=== PATIENT | female | born 1960 | race Caucasian/White ===

== ENCOUNTER → 2020-12-24 08:23 | Outpatient (CLI) | payer SELFPAY ==
--- NOTE | 2020-12-24 09:16 | MRI_ITS ---
STUDY: MRI LUMBAR SPINE WITHOUT CONTRAST REASON FOR EXAM: Female, 60 years old. low back pain x 8 months, RADIATES INTO R LEG TECHNIQUE: Standardized fat and water weighted pulse sequences were obtained in the sagittal and axial planes without contrast. COMPARISON: None FINDINGS: Marrow signal is heterogeneous likely due to combination of osteopenia/osteoporosis and degenerative subchondral conversion related to disc and endplate spondylosis. However, there are linear central zones of increased T2/STIR and decreased T1 signal centrally in T10-T11 and T12 without lesion or compressive loss of height. Surrounded limited paraspinous soft tissues are normal as seen on sagittal pulse sequence. Axial pulse sequences do not cover this region. T12-L1: Mildly degenerated endplates. Mildly degenerated disc height, hydration and morphology. Mildly degenerated bilateral facet joints. Patent central canal and bilateral lateral recesses. Normal bilateral intervertebral neural foramina. Normal lumbar lordosis. There is no substantial scoliosis. Normal conus medullaris that terminates at T12. L1-2: Normal endplates. Normal disc height, mildly reduced in the hydration and morphology. Normal bilateral facet joints. Normal central canal and bilateral lateral recesses. Normal bilateral intervertebral neural foramina. L2-3: Normal endplates. Subchondral chronic zone of marrow degeneration. Mildly degenerated disc height, hydration and morphology. Degenerated bilateral facet joints. Normal central canal and bilateral lateral recesses. Patent right and moderately stenotic left foramina. L3-4: Normal endplates. Normal disc height, reduced hydration and morphology. Normal bilateral facet joints. Minor central canal stenosis without thecal sac compression with patent bilateral foramina.. Normal bilateral intervertebral neural foramina. L4-5: Degenerated endplates. Mildly degenerated disc height, hydration and morphology. Degenerated bilateral facet joints. Moderate to severe canal stenosis and thecal sac compression with bilateral lateral recess stenosis. Mild to moderate bilateral spondylotic foraminal stenosis. L5-S1: Early degenerated endplates. Degenerative disc height, hydration and morphology. Degenerative bilateral facet joints. Mild canal stenosis without functional thecal sac compression. Mild bilateral lateral recess stenosis. Moderate bilateral degenerative spondylotic foraminal stenosis. Normal visualized sacral ala. Normal visualized paraspinous soft tissue structures. MRI/Spine Lumbar (Routine) IMPRESSION: 1. Somewhat linear marrow edema in T10, T11 and T12, incompletely imaged, possibly subclinical osteoporotic insufficiency microfracture. Recommend dedicated thoracic spinal imaging to properly cover the area. 2. Moderate to severe L4-L5 spondylotic thecal sac stenosis. Neurosurgical evaluation is advised. 3. Multilevel various degree foraminal stenoses. Electronically Signed: Raheem Mei MD at 14:30 EST Tel , Service support ,
== END ==
PROVIDERS: PCP Nurse Practitioner Family; Referring Provider Nurse Practitioner Family; Visit Provider Nurse Practitioner Family
DX: R20.2 Paresthesia of skin (principal)
CPT/HCPCS: 72148

== ENCOUNTER → 2021-10-10 15:41 | Outpatient (CLI) | payer OTHER, SELFPAY ==
--- NOTE | 2021-10-10 15:45 | CT_ITS ---
STUDY: LOW DOSE CT LUNG CANCER SCREENING REASON FOR EXAM: Female, 61 years old. 45 pack-year history of smoking RADIATION DOSAGE (If Supplied By Facility): CTDIvol = ( 2.01 ) mGy, DLP = ( 65.19 ) mGycm TECHNIQUE: No contrast was administered. Low dose technique was utilized (average mAS-38 and kVp 120). 1.25 mm axial source images with a slice interval of 1.25-mm were reconstructed in lung windows. 2.5 mm axial source images with a slice interval of 2.5-mm were reconstructed in lung windows. 5.0 mm axial source images with a slice interval of 5.0-mm were reconstructed in soft tissue windows. Nodule measured using lung windows on PACS and/or independent workstation with automated measurement of minimum and maximum diameter. Nodule measurement reported as average diameter rounded to the nearest whole number. Growth is defined as an increase ins size of greater than 1.5 mm. COMPARISON: None. FINDINGS: Lung windows show mild underlying emphysema with bleb formation in the upper lobes. There is no organized infiltrate, or groundglass opacification. There are however 2 separate subcentimeter noncalcified nodules within the right upper lobe on axial images 74 and 85 over there are 2.5 mm noncalcified nodules and a 3.9 mm nodule in the left lung base on axial image 196. These nodules are essentially too small to characterize in the short-term, 6 month follow-up is recommended to show stability. Bony structures show degenerative change Soft tissue windows do not show suspicious abnormality CT/Low Dose CT Lung Screening IMPRESSION: Lung-RADS category 3 - Continue screening with LDCT in 6 months. IMPORTANT NOTES FOR USE: ACR Lung-RADS Version 1.1 Assessment Categories Release Date: 2018 Category: Coded 0-4 bases on nodule(s) with highest degree of suspicion. Negative screen is defined as categories 1 and 2; a positive screen is defined as categories 3 and 4. Category 3 and 4A nodules that are unchanged on interval CT should be coded as category 2, and individuals returned to screening in 12 months. Category 4X: Category 3 or 4 nodules with additional imaging findings that increase the suspicion of lung cancer, such as spiculation, GGN that doubles in size in 1 year, enlarged lymph notes, etc. Category Modifiers: S (significant finding unrelated to lung cancer) Electronically Signed: Heath Viera MD at 17:30 EST , Service support ,
== END ==
PROVIDERS: PCP Internal Medicine; Referring Provider Physician Assistant; Visit Provider Physician Assistant
DX: Z72.0 Tobacco use (principal)
CPT/HCPCS: 71271

== ENCOUNTER → 2022-05-15 | Outpatient (CLI) | payer OTHER, SELFPAY ==
--- NOTE | 2022-05-15 14:01 | CT_ITS ---
STUDY: LOW DOSE CT LUNG CANCER SCREENING REASON FOR EXAM: Female, 62 years old. Lung cancer screening -- and gt;30 pk yr hx;current smoker; asymptomatic RADIATION DOSAGE (If Supplied By Facility): CTDIvol = ( 1.59 ) mGy, DLP = ( 46.05 ) mGycm TECHNIQUE: No contrast was administered. Low dose technique was utilized (average mAS-38 and kVp 120). 1.25 mm axial source images with a slice interval of 1.25-mm were reconstructed in lung windows. 2.5 mm axial source images with a slice interval of 2.5-mm were reconstructed in lung windows. 5.0 mm axial source images with a slice interval of 5.0-mm were reconstructed in soft tissue windows. COMPARISON: Comparison is made with prior study dated 10/10/2021. NODULES: Stable 3 mm noncalcified nodule in the lateral aspect of the right upper lobe as seen on axial image #84. Emphysema: Hyperinflation. Mild degree of emphysematous changes with the linear scarring at the lung apices. Endobronchial lesion: None Aorta: Calcified plaque formation. CORONARY ARTERIES: Coronary artery calcification is seen. Heart: Unremarkable Pulmonary artery: Unremarkable Mediastinal nodes: Small mediastinal lymph nodes. Other chest and abdominal findings: CT/Low Dose CT Lung Screening IMPRESSION: Lung-RADS category 2 - Continue annual screening with LDCT in 12 months. IMPORTANT NOTES FOR USE: ACR Lung-RADS Version 1.1 Assessment Categories Release Date: 2018 Category: Coded 0-4 bases on nodule(s) with highest degree of suspicion. Negative screen is defined as categories 1 and 2; a positive screen is defined as categories 3 and 4. Category 3 and 4A nodules that are unchanged on interval CT should be coded as category 2, and individuals returned to screening in 12 months. Category 4X: Category 3 or 4 nodules with additional imaging findings that increase the suspicion of lung cancer, such as spiculation, GGN that doubles in size in 1 year, enlarged lymph notes, etc. Category Modifiers: S (significant finding unrelated to lung cancer) Electronically Signed: Thanh Persaud MD at 14:31 EDT ,
== END | disposition home or self-care (01) ==
LOC: CT 14:00
PROVIDERS: PCP Internal Medicine; Referring Provider Nurse Practitioner Family; Visit Provider Nurse Practitioner Family
DX: Z87.891 Personal history of nicotine dependence (principal); R91.8 Other nonspecific abnormal finding of lung field; Z12.2 Encounter for screening for malignant neoplasm of respiratory organs
CPT/HCPCS: 71271

== ENCOUNTER → 2022-06-26 | Outpatient (CLI) | payer OTHER, SELFPAY ==
--- NOTE | 2022-06-26 15:53 | BI_ITS ---
MAMMOGRAPHY - BILATERAL SCREENING REASON FOR EXAM: Female, 62 years old. Routine annual screening examination. PERTINENT HISTORY: Non-contributory. TECHNIQUE: Digital bilateral breast leigh ann (3D mammographic acquisition) in the CC and MLO projections. 2-D mediolateral oblique (MLO) and craniocaudad (CC) views of both breasts were obtained. CAD: Full Field Digital Mammography with Computer Added Detection was performed. COMPARISON: Comparison is made with prior outside examination dated 02/07/2021. FINDINGS: Breast Composition: The breasts are heterogeneously dense, which may obscure small masses. There are no dominant masses or suspicious calcifications. Stable benign-appearing bilateral axillary lymph nodes. No other significant abnormalities are identified. There has been no significant change since the prior study. BI/SCRN MAMM (CAD)W/LEIGH ANN BILAT IMPRESSION: Stable bilateral screening mammogram. Yearly follow-up mammogram recommended. (A) ASSESSMENT CATEGORY: BIRADS Category 2: Benign. A letter regarding these results will be sent to the patient by the facility within 30 days. Approximately 10% of breast cancers are not detected by mammography. A normal mammogram should not delay biopsy of a clinically suspicious abnormality. [id number] Electronically Signed: Thanh Persaud MD at 8:21 EDT ,
== END | disposition home or self-care (01) ==
LOC: OPBI 15:52
PROVIDERS: PCP Internal Medicine; Visit Provider Nurse Practitioner Family
DX: Z12.31 Encounter for screening mammogram for malignant neoplasm of breast (principal)
CPT/HCPCS: 77063; 77067

== ENCOUNTER → 2022-07-27 | Outpatient (CLI) | payer OTHER, SELFPAY ==
[2022-07-27 11:28] LABS: Absolute Lymphocyte Count 3.55 X10^3/uL (0.83-4.51); Absolute Neutrophil Count 6.9 X10^3/uL (2.0-7.7); Basophil# 0.11 X10^3/uL; Basophil% 0.9 % (0-1); Eosinophil# 0.74 X10^3/uL; Hematocrit 40.8 % (37-47); Hemoglobin 14.1 g/dL (12.0-15.0); Lymphocyte # 3.55 X10^3/ul (0.83-4.51); Lymphocyte % 28.6 % (19-41); Mean Corp Hgb Conc 34.6 g/dL (32-36); Mean Corpuscular Hgb 32.1 pg (27.0-32.0); Mean Corpuscular Volume 92.9 fL (81-99); Mean Platelet Vol. 11.7 fl (6.2-12.0); Monocyte# 1.02 X10^3/uL; Monocyte% 8.2 % (0-10); NRBC Flagged by Analyzer 0 % (0-5); Neutrophil # 6.93 X10^3/uL (2.7-7.7); Neutrophil % 55.8 % (47-70); Platelet Count 314 K/mm3 (150-450); RBC Distribution Width CV 12.1 % (11.6-14.6); RBC Distribution Width SD 41.5 fl (35.1-43.9); Red Blood Count 4.39 M/mm3 (4.2-5.4); White Blood Count 12.4 K/mm3 (4.4-11.0)
[2022-07-27 12:10] LABS: ALB/GLOB Ratio 0.8 RATIO (0.9-2.4); AST(SGOT) 28 U/L (15-37); Alanine Aminotransfer ALT/SGPT 34 U/L (13-56); Alkaline Phosphatase 100 U/L (45-117); Anion Gap 7 (5-15); BUN 20 mg/dL (7-18); BUN/Creat Ratio 24.5 RATIO (10-20); Calcium,Total 9.6 mg/dL (8.5-10.1); Chloride 105 mmol/L (98-107); Cholesterol 273 mg/dL (200); Creatinine, Serum 0.82 mg/dL (0.55-1.02); EST Glomerular Filtration Rate 76 mL/min (>60); Est Glom Filt Rate - Afr Amer 92 mL/min (>60); Globulin 4.8 g/dL (2.2-4.2); Glucose 93 mg/dL (74-106); High Density Lipoprotein 60 mg/dL; Potassium 4.8 mmol/L (3.5-5.1); Protein, Total 8.8 g/dL (6.4-8.2); Sodium Level 138 mmol/L (136-145); Triglycerides 238 mg/dL; Very Low Density Lipoprotein 48 mg/dL (5-40)
== END | disposition home or self-care (01) ==
LOC: LAB 09:57
PROVIDERS: PCP Internal Medicine; Referring Provider Physician Assistant; Visit Provider Physician Assistant
DX: Z00.00 Encounter for general adult medical examination without abnormal findings (principal); I10 Essential (primary) hypertension; Z13.220 Encounter for screening for lipoid disorders; Z13.6 Encounter for screening for cardiovascular disorders
CPT/HCPCS: 36415; 80053; 80061; 85025

== ENCOUNTER → 2022-08-23 | Outpatient (CLI) | payer OTHER, SELFPAY ==
--- NOTE | 2022-08-23 09:45 | RAD_ITS ---
STUDY: X-RAY - RIGHT ANKLE REASON FOR EXAM: Female, 62 years old. Swelling and lateral malleolar pain. TECHNIQUE: 3 view(s) of the ankle. COMPARISON: None. FINDINGS: Normal visualized distal tibia and fibula. Normal medial and lateral malleoli. Normal tibiotalar articulation and ankle mortise. Normal visualized talus and calcaneus. The visualized subtalar, talonavicular, calcaneocuboid and tarsal articulations are normal. The soft tissue structures are unremarkable. RAD/Ankle min 3 Views IMPRESSION: No abnormality of the right ankle. Electronically Signed: Iftikhar Morton, at 11:41 EDT ,
== END | disposition home or self-care (01) ==
LOC: RAD 09:44
PROVIDERS: PCP Internal Medicine; Referring Provider Physician Assistant; Visit Provider Physician Assistant
DX: M25.571 Pain in right ankle and joints of right foot (principal)
CPT/HCPCS: 73610

== ENCOUNTER → 2022-11-22 | Outpatient (CLI) | payer OTHER, SELFPAY | END | disposition home or self-care (01) | LOC: LABSPEC 16:13 | PROVIDERS: PCP Internal Medicine; Referring Provider Physician Assistant; Visit Provider Physician Assistant | DX: R05.9 Cough, unspecified (principal) | CPT/HCPCS: 87635; U0003; U0005 ==

== ENCOUNTER → 2023-09-19 | Outpatient (CLI) | payer OTHER, SELFPAY ==
[2023-09-19 16:38] LABS: Absolute Lymphocyte Count 3.69 X10^3/uL (0.83-4.51); Basophil# 0.13 X10^3/uL; Eosinophil# 0.84 X10^3/uL; Eosinophils% 6.5 % (0-5); Hematocrit 36.3 % (37-47); Hemoglobin 12.7 g/dL (12.0-15.0); Lymphocyte # 3.69 X10^3/ul (0.83-4.51); Lymphocyte % 28.5 % (19-41); Mean Corpuscular Hgb 31.8 pg (27.0-32.0); Mean Platelet Vol. 11.7 fl (6.2-12.0); Monocyte# 1.19 X10^3/uL; Monocyte% 9.2 % (0-10); NRBC Flagged by Analyzer 0 % (0-5); Neutrophil # 7.04 X10^3/uL (2.7-7.7); Neutrophil % 54.5 % (47-70); Platelet Count 298 K/mm3 (150-450); RBC Distribution Width CV 12.3 % (11.6-14.6); RBC Distribution Width SD 40.8 fl (35.1-43.9); Red Blood Count 3.99 M/mm3 (4.2-5.4); White Blood Count 12.9 K/mm3 (4.4-11.0)
[2023-09-19 17:08] LABS: ALB/GLOB Ratio 0.8 RATIO (0.9-2.4); AST(SGOT) 27 U/L (15-37); Alanine Aminotransfer ALT/SGPT 31 U/L (13-56); Albumin, Serum 3.7 g/dL (3.2-5.0); Alkaline Phosphatase 105 U/L (45-117); Anion Gap 5 (5-15); BUN 23 mg/dL (7-18); Calcium,Total 9.3 mg/dL (8.5-10.1); Chloride 107 mmol/L (98-107); Cholesterol 267 mg/dL (200); Creatinine, Serum 1.15 mg/dL (0.55-1.02); EST Glomerular Filtration Rate 51 mL/min (>60); Est Glom Filt Rate - Afr Amer 61 mL/min (>60); Globulin 4.4 g/dL (2.2-4.2); Glucose 98 mg/dL (74-106); High Density Lipoprotein 58 mg/dL; Potassium 3.9 mmol/L (3.5-5.1); Protein, Total 8.1 g/dL (6.4-8.2); Sodium Level 138 mmol/L (136-145); Triglycerides 297 mg/dL; Very Low Density Lipoprotein 59 mg/dL (5-40)
== END | disposition home or self-care (01) ==
LOC: BIMLAB 15:30
PROVIDERS: PCP Internal Medicine; Visit Provider Internal Medicine
DX: I10 Essential (primary) hypertension (principal)
CPT/HCPCS: 36415; 80053; 80061; 85025

== ENCOUNTER → 2024-03-10 | Outpatient (CLI) | payer OTHER, SELFPAY ==
--- NOTE | 2024-03-10 15:33 | BI_ITS ---
MAMMOGRAPHY - BILATERAL SCREENING REASON FOR EXAM: Female, 63 years old. Routine annual screening examination. PERTINENT HISTORY: Non-contributory. TECHNIQUE: Digital bilateral breast leigh ann (3D mammographic acquisition) in the CC and MLO projections. 2-D mediolateral oblique (MLO) and craniocaudad (CC) views of both breasts were obtained. CAD: Full Field Digital Mammography with Computer Added Detection was performed. COMPARISON: Comparison is made with prior examination June 26, 2022. FINDINGS: Breast Composition: The breasts are heterogeneously dense, which may obscure small masses. There are no dominant masses or suspicious calcifications. Stable small benign-appearing bilateral axillary lymph nodes. No other significant abnormalities are identified. There has been no significant change since the prior study. BI/SCRN MAMM (CAD)W/LEIGH ANN BILAT IMPRESSION: Stable bilateral screening mammogram. Yearly follow-up mammogram recommended. (A) ASSESSMENT CATEGORY: BIRADS Category 2: Benign. A letter regarding these results will be sent to the patient by the facility within 30 days. Approximately 10% of breast cancers are not detected by mammography. A normal mammogram should not delay biopsy of a clinically suspicious abnormality. [id number] Electronically Signed: Thanh Persaud MD at 8:24 EDT ,
--- NOTE | 2024-03-10 15:42 | BD_ITS ---
STUDY: DUAL ENERGY X-RAY ABSORPTIOMETRY / DXA REASON FOR EXAM: Female, 63 years old. Post Menopausal TECHNIQUE: Bone Mineral Density (BMD) measurements of lumbar spine and bilateral hips were obtained. COMPARISON: None. FINDINGS: Lumbar Spine (L1-L4): g/cm2 (1.168) / T-score (1.7) / Z-score (3.2) Findings are suggestive of normal bone density with a low fracture risk. Left Femur Total: g/cm2 (0.922) / T-score (-0.2) / Z-score (0.9) Left Femoral Neck: g/cm2 (0.826) / T-score (-0.2) / Z-score (1.2) Right Femur Total: g/cm2 (0.878) / T-score (-0.5) / Z-score (0.6) Right Femoral Neck: g/cm2 (0.818) / T-score (-0.3) / Z-score (1.1) . BD/Dexa Bone Density Study IMPRESSION: The patient is considered normal as outlined below according to World Faisal Organization (WHO) criteria with a low fracture risk. Reference Information: The T-score is the number of standard deviations above or below the standard which is normal for young adults at their peak bone mineral density. The World Health Organization (WHO) interprets the T-scores as follows: Above -1 Normal bone density Between -1 and -2.5 Osteopenia Equal to / or below -2.5 Osteoporosis As a practical clinical guideline, osteopenia may be graded as follows: Mild -1 through -1.5 Moderate -1.6 through -2.0 Severe -2.1 through -2.4 The Z-score is the number of standard deviations above or below age-matched controls. A Z-score of less than -1.5 would be considered abnormal. References: 1. NIH Osteoporosis and Related Bone Diseases www osteo.org 2. International Society for Clinical Densitometry www iscd.org 3. National Osteoporosis Foundation www nof.org Electronically Signed: Thanh Persaud MD at 13:38 EDT ,
== END | disposition home or self-care (01) ==
LOC: OPBD 15:33
PROVIDERS: PCP Internal Medicine; Referring Provider Internal Medicine; Visit Provider Internal Medicine
DX: Z12.31 Encounter for screening mammogram for malignant neoplasm of breast (principal); Z78.0 Asymptomatic menopausal state
CPT/HCPCS: 77063; 77067; 77080

== ENCOUNTER → 2024-06-13 | Outpatient (CLI) | payer OTHER, SELFPAY ==
--- NOTE | 2024-06-13 10:02 | RAD_ITS ---
EXAM: XR LEFT ANKLE COMPLETE, 3 OR MORE VIEWS CLINICAL INDICATION: pain TECHNIQUE: Frontal, lateral and oblique views of the left ankle. COMPARISON: No relevant prior studies available. FINDINGS: BONES/JOINTS: No acute fracture or subluxation. SOFT TISSUES: Mild lateral soft tissue swelling. No radiopaque foreign body. RAD/Ankle min 3 Views IMPRESSION: No acute bone or joint abnormality. Electronically Signed: Luis Song MD at 10:19 EDT ,
== END | disposition home or self-care (01) ==
LOC: RAD 09:59
PROVIDERS: PCP Internal Medicine; Referring Provider Physician Assistant; Visit Provider Physician Assistant
DX: S93.402A Sprain of unspecified ligament of left ankle, initial encounter (principal); X58.XXXA Exposure to other specified factors, initial encounter
CPT/HCPCS: 73610

== ENCOUNTER → 2025-04-15 | Outpatient (CLI) | payer OTHER, SELFPAY ==
--- NOTE | 2025-04-15 10:00 | BI_ITS ---
EXAM: SCRN MAMM (CAD)W/LEIGH ANN BILAT DATE: 04/15/2025 CLINICAL HISTORY: F, Age 65 y/o , BREAST CANCER SCREENING No family history. BREAST CANCER RISK ASSESSMENT: Not assessed. TECHNIQUE: Bilateral screening digital breast tomosynthesis with 2D and 3D images. Computer aided detection. COMPARISON: Prior exam(s) dated March 11, 2024.. FINDINGS: TISSUE DENSITY: The breast tissue is heterogenously dense, which may obscure small masses. Bilateral Breast Mammographic Findings: No significant masses, calcifications or other abnormalities are identified. No suspicious masses, areas of developing architectural distortion, or suspicious calcifications. There has been no significant interval change. BI/SCRN MAMM (CAD)W/LEIGH ANN BILAT IMPRESSION: OVERALL FINAL ASSESSMENT: BIRADS 1 NEGATIVE RECOMMENDATION: Routine annual follow-up in 1 Year A letter with findings and recommendations will be mailed to the patient. Reading Location: [id number]
== END | disposition home or self-care (01) ==
LOC: OPBI 09:34
PROVIDERS: PCP Internal Medicine; Referring Provider Internal Medicine; Visit Provider Internal Medicine
DX: Z12.31 Encounter for screening mammogram for malignant neoplasm of breast (principal)
CPT/HCPCS: 77063; 77067

== ENCOUNTER → 2025-06-24 | Outpatient (CLI) | payer OTHER, SELFPAY ==
--- NOTE | 2025-06-24 10:04 | RAD_ITS ---
EXAM: XR Right Shoulder Complete, 2 or More Views CLINICAL INDICATION: RIGHT SHOULDER PAIN TECHNIQUE: Two or more views of the right shoulder. COMPARISON: No relevant prior studies available. FINDINGS: BONES/JOINTS: Mild degenerative change of the acromioclavicular and glenohumeral joints. No acute fracture. No dislocation. SOFT TISSUES: Unremarkable. RAD/Shoulder min 2 Views IMPRESSION: Degenerative changes as above. Reading Location: [id number]
--- OUTSIDE RECORDS SUMMARY | 2025-06-24 12:12 | XMS RPT_ITS | CCD ---
Author Organization [facility] Care Team Providers Care Sample Maker Name Role Phone Margarito Montoya Unavailable Unavailable Margarito Montoya Unavailable Unavailable Longsdorf, Linn A Unavailable Unavailab le Ivanauskas, Saulius Unavailable Unavailable Ivanauskas, Saulius Unavailable Unavailable [facility] Unavailable Unavailable Required, No Pcp Unavailable Unavailable Ellen Rosado Unavailable Linn Majano Unavailable Unavailable Kris Fermin Unavailable Unavailable Dr. Bella Franco Primary Care Provider [phone] Dr. Bella Franco Referring Provider [phone] SONAM Abernathy Attending Provider Unavailab milena Beto UNHAIRING MACHINE OPERATOR, UNHAIRING MACHINE OPERATOR-C Romana Attending Provider Dr. Bella Franco Primary Care Provider [phone] Dr. Bella Franco Referring Provider [phone] SONAM Abernathy Attending Provider Unavailab le Beto UNHAIRING MACHINE OPERATOR, UNHAIRING MACHINE OPERATOR-C Romana Referring Provider Dr. Bella Franco Primary Care Provider [phone] Dr. Bella Franco Referring Provider [phone] SONAM Abernathy Attending Provider Unavailab milena Rosado, Ms. Hughes April Primary Care Unava ileron Stockton, MsOfelia Hernandez Attending Unavailab milena Rosado, MsOfelia Ellen April Primary Care Unava ileron Stockton, MsOfelia Hernandez Attending Unavailab milena [place]ton, MsOfelia Hanva Mary Attending Unavailab milena Rosado, MsOfelia Ellen April Primary Care Unava ilable BRUNICARDI, RUSSELL ARMAND Primary Care Unavail able BRUNICARDI, RUSSELL ARMAND Admitting Unavail able Bailee THEODORE, Russell Armand Primary Care Provide r Dr. Bella Franco Primary Care Provider [phone] Dr. Bella Franco Referring Provider [phone] Dr. Unruly Sandoval Attending Provider Dr. Red Rubio Attending Provider Dr. Bella Franco Attending Provider [phone] BRUNICARDI, RUSSELL ARMAND Primary Care Unavail able BRUNICARDI, RUSSELL ARMAND Attending Unavail able BRUNICARDI, RUSSELL ARMAND Primary Care Unavail able BRUNICARDI, RUSSELL ARMAND Attending Unavail able DENTON LOUIS Attending Unavailable BRUNICARDI, RUSSELL ARMAND Primary Care Unavail able BRUNICARDI, RUSSELL ARMAND Primary Care Unavail able BRUNICARDI, RUSSELL ARMAND Attending Unavail able Oleghe, Efewongbe Primary Care Unavailable Lj Arrieta Attending Unavailable Oleghe, Efewongbe Referring Unavailable Oleghe, Efewongbe Primary Care Unavailable Oleghe, Efewongbe Attending Unavailable Oleghe, Efewongbe Referring Unavailable Oleghe, Efewongbe Primary Care Unavailable Lj Arrieta Attending Unavailable Lj Arrieta Referring Unavailable Oleghe, Efewongbe Primary Care Unavailable Oleghe, Efewongbe Attending Unavailable Oleghe, Efewongbe Referring Unavailable Oleghe, Efewongbe Primary Care Unavailable Oleghe, Efewongbe Attending Unavailable Oleghe, Efewongbe Referring Unavailable Aleae Dr. Bella THEODORE Primary Care Provider Dr. Bella Franco MD Attending Provider [phone] Dr. Bella Franco MD Referring Provider [phone] Fidencio Jones Attending Provider [phone] Fidencio Jones Referring Provider [phone] Allergies Allergy Classification Reported Allergen(s) Allergy Type Date of Onset Reaction(s) Facility (5 sources) bee venom protein (honey bee) Allergy to substance 11-22-2022 Anaphylaxis [facility] (1 source) bee venom protein (honey bee) Drug allergy (disorder) 03-24-2025 [facility] Repository Medications Current Medications Medication Drug Class(es) Dates Sig (Normalized) Sig (Original) amLODIPine 10 mg oral tablet (20 sources) Dihydropyridine Calcium Channel James Start: 07-19-2022 End: 06-11-2025 take 1 tablet by mouth once daily Amlodipine 10 mg tablet Active 10 mg PO DAILY 90 0 June 11, 2025 8:53am Start: 05-16-2022 End: 07-19-2022 take 1 tablet by mouth once daily Amlodipine 2.5 mg tablet Discontinued 2.5 mg PO DAILY 90 1 May 16, 2022 12:00am July 19, 2022 4:30pm Start: 05-10-2022 End: 07-19-2022 take 7.5 mg by mouth once daily Amlodipine 5 mg tablet Discontinued 7.5 mg PO DAILY 120 0 May 10, 2022 4:25pm July 19, 2022 4:31pm Start: 05-10-2022 End: 07-19-2022 take 7.5 mg by mouth once daily Amlodipine Discontinue d 7.5 MG PO DAILY 120 May 10, 2022 4:25pm July 19, 2022 4:31pm Start: 12-05-2021 End: 05-10-2022 take 1 tablet by mouth once daily Amlodipine 5 mg tablet Discontinued 5 mg PO DAILY 90 0 February 06, 2022 4:13pm May 10, 2022 6:47pm Comment on above: Source=[employer], Medication=amlodipine 5 mg tablet, OriginatingSource=[employer], OriginatingProvider=Bella Franco, Duration=30, Refills=1, Date Last Modified/Filled=05-Dec-2021 calcium carbonate 1500 mg oral tablet (10 sources) Start: Calcium Carbonate (Calcium 600) 600 mg calcium (1,500 mg) tablet Active 1200 mg PO TWICE A DAY February 23, 2021 12:00am End: 04-19-2023 take 1 capsule by mouth twice daily at mealtime calcium carbonate 1250 MG capsule Take 1,250 mg by mouth 2 (two) times a day with meals . 0 04/19/2023 Discontinued (Therapy completed) calcium carbonate 1250 mg / cholecalciferol 200 unt oral tablet (2 sources) Vitamin D take 1 tablet by mouth twice daily at mealtime calcium-vitamin D 500 mg-5 mcg (200 unit) per tablet Take 1 (one) tablet by mouth 2 (two) times a day with meals . 0 Active cyclobenzaprine hydrochloride 10 mg oral tablet (2 sources) Muscle Relaxant Start: take 1 tablet by mouth once as needed for muscle spasms Cyclobenzaprine 10 mg tablet Active 10 mg PO BEDTIME as needed for muscle spasm 14 June 13, 2024 12:00am take only AFTER work hours as needed [id number] 0.3 ml EPINEPHrine 1 mg/ml auto-injector (9 sources) alpha-Adrenergic Agonist, beta-Adrenergic Agonist, Catecholamine Start: Epinephrine (Epipen 2-Kyler) 0.3 mg/0.3 mL auto-injector Active 0.3 mg IM every 5 to 15 minutes as needed for anaphylaxis 2 May 11, 2021 12:00am do not exceed 3 doses per episode gabapentin 800 mg oral tablet (20 sources) Anti-epileptic Agent Start: End: take 1 tablet by mouth every six hours as needed Gabapentin 800 mg tablet Active 0 .ROUTE .COMPLEX 360 0 May 19, 2025 11:52pm TAKE 1 TABLET BY MOUTH EVERY 6 HOURS NEEDED FOR NEUROPATHY Start: 02-23-2021 End: 10-31-2021 take 1 tablet by mouth twice daily Gabapentin 800 mg tablet Discontinued 800 mg PO TWICE A DAY 180 1 October 23, 2021 5:43pm October 31, 2021 9:36am Comment on above: Source=[place], Medication=gabapentin 800 mg tablet, OriginatingSource=[employer], OriginatingProvider=Bella Franco, Duration=30, Refills=1, Date Last Modified/Filled=06-Nov-2021 hydroCHLOROthiazide 12.5 mg oral tablet (20 sources) Thiazide Diuretic Star t: 03-07 End: 01-07 Hydrochlorothiazide Discontinued MG PO August 21, 2023 12:00am September 19, 2023 3:00pm Start: 05-17-2023 End: 04-30-2025 take 1 tablet by mouth once daily Hydrochlorothiazide 12.5 mg tablet Active 12.5 mg PO DAILY 90 April 30, 2025 1:10pm Leg Brace (Ankle Brace) misc (11 sources) Start: 11-22-2022 Leg Brace (Ank le Brace) misc Active 0 .Route 1 0 November 22, 2022 5:01pm Ankle pain Pain in unspecified ankle and joints of unspecified foot lace up ankle brace Start: 11-22-2022 Leg Brace (Ank le Brace) misc Active 0 .Route 1 November 22, 2022 5:01pm lace up ankle brace Start: 11-22-2022 Leg Brace (Ank le Brace) misc Active 0 .Route 1 November 22, 2022 4:01pm lace up ankle brace Start: 08-24-2022 End: 11-22-2022 Leg Brace (Ankle Brace) misc Discontinued 0 .Route 1 0 August 24, 2022 12:00am November 22, 2022 5:02pm Ankle pain Pain in unspecified ankle and joints of unspecified foot Wear daily Start: 08-24-2022 End: 11-22-2022 Leg Brace (Ankle Brace) misc Discontinued 0 .Route 1 August 24, 2022 12:00am November 22, 2022 5:02pm Wear daily Start: 08-24-2022 End: 11-22-2022 Leg Brace (Ankle Brace) misc Discontinued 0 .Route 1 August 23, 2022 11:00pm November 22, 2022 4:02pm Wear daily Start: 08-24-2022 Leg Brace (Ank le Brace) misc Active 0 .Route 1 August 24, 2022 12:00am Wear daily Magnesium (6 sources) Start: 08-21-2023 take 1 tablet by mark th once daily Magnesium 200 mg tablet Active 200 mg PO DAILY August 21, 2023 12:00am Start: 08-21-2023 take 200 mg by mouth once joana y Magnesium Active 200 MG PO DAILY August 21, 2023 12:00am Start: 08-21-2023 take 200 mg by mouth once joana y Magnesium Active 200 MG PO DAILY August 20, 2023 11:00pm take 1 tablet by mark th once daily magnesium 250 mg Tab Take 1 (one) tablet (250 mg total) by mouth daily . 0 Active metoprolol tartrate 100 mg oral tablet (20 sources) beta-Adrenergic James Start: 02-06-2022 End: 05-25-2025 take 1 tablet by mouth twice daily Metoprolol Tartrate 100 mg tablet Active 0 .ROUTE .COMPLEX 180 May 25, 2025 12:33pm TAKE 100 MG BY MOUTH TWICE DAILY Start: 03-02-2021 End: 05-11-2021 Metoprolol Tartrate 50 mg ta blet Discontinued 25 mg PO TWICE A DAY March 02, 2021 4:23pm May 11, 2021 4:15pm Start: 03-02-2021 End: 05-11-2021 take 25 mg by mouth twice daily Metoprolol Tartrate Di scontinued 25 MG PO TWICE A DAY March 02, 2021 4:23pm May 11, 2021 4:15pm Start: 02-23-2021 End: 04-19-2023 take 1 tablet by mouth twice daily Metoprolol Tartrate 50 mg tablet Discontinued 50 mg PO TWICE A DAY 180 December 21, 2021 12:40pm February 06, 2022 4:09pm Comment on above: Source=[place], Medication=metoprolol tartrate 50 mg tablet, OriginatingSource=[employer] #[employer], OriginatingProvider=Bella Franco, Duration=30, Refills=1, Date Last Modified/Filled=13-Dec-2021 Multivitamin preparation (9 sources) Start: 2021 take 1 tablet by mouth once daily Multivitamin Active 1 TABLET PO DAILY November 23, 2021 12:00am Start: 11-23-2021 take 1 tablet by mark th once daily Multivitamin Active 1 TABLET PO DAILY November 23, 2021 1:00am Vitamin B Comple x 100 Quantity: 0 Refills: 0 Ordered: 31-May-2020 Madina Puente Status: Completed Generic Substitution Allowed Multivitamin tablet (2 sources) Start: 11-23-2021 Multivitamin t ablet Active 1 {tbl} PO DAILY November 23, 2021 1:00am predniSONE 10 mg oral tablet (1 source) Start: 05-17-2023 End: 05-24-2023 take 1 tablet by mouth three times daily predniSONE (DELTASONE) 10 MG tablet Indications: Chest wall pain Take 1 (one) tablet (10 mg total) by mouth 3 (three) times a day for 7 days . 21 tablet 0 05/17/2023 05/24/2023 Active traMADol hydrochloride 50 mg oral tablet (1 source) Opioid Agonist Start: 04-04-2022 End: 04-06-2022 take 1 tablet by mouth four times daily Ultram 50 mg oral tablet ; 1 tab(s) orally 4 times a day Quantity: 12 Refills: 0 Ordered: 04-Apr-2022 Kris Fermin Start: 04-Apr-2022 End: 06-Apr-2022 Generic Substitution Allowed Comments: Caution federal law prohibits the transfer of this drug to any person other than the person for whom it was prescribed.May cause drowsiness. Alcohol may intensify this effect. Use care when operating dangerous machinery.Obtain medical advice before taking any non-prescription drugs as some may affect the action of this medication. Comment on above: Caution [place] law prohibits the transfer of this drug to any person other than the person for whom it was prescribed.May cause drowsiness. Alcohol may intensify this effect. Use care when operating dangerous machinery.Obtain medical advice before taking any non-prescription drugs as some may affect the action of this medication. Completed/Discontinued Medications Medication Drug Class(es) Dates Sig (Normalized) Sig (Original) acetaminophen 500 mg oral tablet (1 source) End: 04-19-2023 acetaminophen (TYLENOL) 500 MG tablet Take 1,000 mg by mouth as needed for pain . 0 04/19/2023 Discontinued (Therapy completed) atorvastatin 10 mg oral tablet (7 sources) HMG-CoA Reductase Inhibitor Start: 07-31-2022 End: 08-21-2023 take 1 tablet by mouth at bedtime Atorvastatin 10 mg tablet Discontinued 10 mg PO AT BEDTIME 60 1 July 31, 2022 12:00am August 21, 2023 1:09pm benzonatate 100 mg oral capsule (11 sources) Non-narcotic Antitussive Start: 03-31-2025 End: 06-24-2025 Benzonatate 100 mg capsule Discontinued 100 mg PO 2 to 3 times per day as needed for cough 90 2 March 31, 2025 12:00am June 24, 2025 10:02am Start: 09-01-2021 End: 09-25-2021 take 1 capsule by mouth twice daily as needed for cough Benzonatate (Tessalon Perles) 100 mg capsule Discontinued 100 mg PO TWICE A DAY as needed for cough 30 1 September 01, 2021 12:00am September 25, 2021 4:55pm 12 hr buPROPion hydrochloride 150 mg extended release oral tablet (9 sources) Aminoketone Start: 05-10-2022 End: 07-19-2022 Bupropion Hcl 150 mg tablet sustained-release 12 hr Discontinued 150 mg PO TWICE A DAY 180 0 May 10, 2022 12:00am July 19, 2022 4:10pm Take 1 tablet once a day for 4 days then increase to twice a day. Separate doses by at least 8 hours. Stop smoking after 5-7 days of treatment. ibuprofen 200 mg oral capsule (9 sources) Nonsteroidal Anti-inflammatory Drug Start: 03-17-2021 End: 03-26-2024 take 1 capsule by mouth every six hours as needed Ibuprofen 200 mg capsule Discontinued 200 mg PO EVERY 6 HOURS as needed March 17, 2021 12:00am March 26, 2024 3:55pm Lactobacillus Combination No.9 (Adult 50 Plus Probiotic) 4 billion cell capsule (9 sources) Start: 02-06-2022 End: 08-21-2023 take 4 capsules by mouth once daily Lactobacillus Combination No.9 (Adult 50 Plus Probiotic) 4 billion cell capsule Discontinued 4000 NMA PO DAILY February 06, 2022 12:00am August 21, 2023 1:09pm administer with a meal Start: 02-06-2022 End: 08-21-2023 take 4 capsules by mouth once daily Lactobacillus Combination No.9 (Adult 50 Plus Probiotic) 4 billion cell capsule Discontinued 4000 MMU CELLS PO DAILY February 06, 2022 12:00am August 21, 2023 1:09pm administer with a meal Start: 02-06-2022 End: 08-21-2023 take 4 capsules by mouth once daily Lactobacillus Combination No.9 (Adult 50 Plus Probiotic) 4 billion cell capsule Discontinued 4000 MMU CELLS PO DAILY February 05, 2022 11:00pm August 21, 2023 12:09pm administer with a meal Start: 02-06-2022 take 4 capsules by m outh once daily Lactobacillus Combination No.9 (Adult 50 Plus Probiotic) 4 billion cell capsule Active 4000 MMU CELLS PO DAILY February 05, 2022 11:00pm administer with a meal Start: 02-06-2022 take 4 capsules by m outh once daily Lactobacillus Combination No.9 (Adult 50 Plus Probiotic) 4 billion cell capsule Active 4000 MMU CELLS PO DAILY February 06, 2022 12:00am administer with a meal lisinopril 10 mg oral tablet (2 sources) Angiotensin Converting Enzyme Inhibitor take 1 tablet by mouth once daily lisinopril 10 mg oral tablet ; 1 tab(s) orally once a day Quantity: 0 Refills: 0 Ordered: 31-May-2020 Madina Puente Status: Completed Generic Substitution Allowed loperamide hydrochloride 2 mg oral capsule (9 sources) Opioid Agonist Start: End: Loperamide 2 mg capsule Discontinued 2 mg PO .COMPLEX as needed for loose stool 07 12September 01, 2021 12:00am November 23, 2021 4:52pm Take 4 mg by mouth once and then 2 mg by mouth after each loose stool Start: 09-01-2021 End: 11-23-2021 Loperamide Discontinued 2 MG PO .COMPLEX September 01, 2021 12:00am November 23, 2021 4:52pm Take 4 mg by mouth once and then 2 mg by mouth after each loose stool methylPREDNISolone 4 mg oral tablet (2 sources) Corticosteroid Start: 06-13-2024 End: 09-24-2024 take 1 tablet by mouth once Methylprednisolone (Medrol (Kyler)) 4 mg tablets,dose pack Discontinued 0 PO per package directions 21 June 13, 2024 12:00am September 24, 2024 4:41pm PO PER PKG DIR move [employer] (9 sources) Start: 02-23-2021 End: 08-21-2023 move [employer] Discontinued PO 0 February 23, 2021 12:00am August 21, 2023 1:09pm Start: 02-23-2021 End: 08-21-2023 move [employer] Disco ntinued PO February 23, 2021 12:00am August 21, 2023 1:09pm Start: 02-23-2021 End: 08-21-2023 move [facility] Disco ntinued PO February 22, 2021 11:00pm August 21, 2023 12:09pm Start: 02-23-2021 move free [facility] Active PO February 22, 2021 11:00pm Start: 02-23-2021 move free join t health Active PO February 23, 2021 12:00am 24 hr nicotine 0.875 mg/hr transdermal system (9 sources) Cholinergic Nicotinic Agonist Start: 09-25-2021 End: 05-10-2022 apply 1 dose transdermal route every twenty-four hours Nicotine 21 mg/24 hr patch 24 hour Discontinued 1 NMA TD DAILY 12 02September 25, 2021 1:00am May 10, 2022 4:00pm Start: 09-25-2021 End: 05-10-2022 apply 1 dose transdermal route once daily Nicotine Discontinued 1 PATCH TD DAILY September 25, 2021 1:00am May 10, 2022 4:00pm Problems Active Problems Problem Classification Problem Date Documented Date Episodic/Chronic Anxiety disorders (4 sources) Anxiety disorder, unspecified; Translations: [Anxiety state, unspecified] Chronic Disorders of lipid metabolism (7 sources) Pure hypercholesterolemia, unspecified; Translations: [Pure hypercholesterolemia] Onset: 04-19-2023 Chronic Essential hypertension (20 sources) Hypertensive disorder; Translations: [Essential (primary) hypertension] Onset: 04-19-2023 Chronic Heart valve disorders (2 sources) Heart murmur; Translations: [Cardiac murmur, unspecified] 03-26-2024 Episodic Other acquired deformities (5 sources) Other secondary scoliosis, lumbosacral region; Translations: [Scoliosis of lumbosacral region due to degenerative disease of spine in adult] 08-21-2023 Chronic Other lower respiratory disease (9 sources) Multiple nodules of lung; Translations: [Other nonspecific abnormal finding of lung field] 05-15-2022 Episodic Other lower respiratory disease (4 sources) Cough; Translations: [Cough] 03-24-2025 Episodic Other non-traumatic joint disorders (2 sources) Effusion, unspecified ankle; Translations: [Effusion of joint, ankle and foot] Episodic Other non-traumatic joint disorders (3 sources) Pain in right ankle and joints of right foot; Translations: [Pain in joint, ankle and foot] Episodic Other non-traumatic joint disorders (4 sources) Hip pain; Translations: [Pain in left hip] 08-21-2023 Episodic Other non-traumatic joint disorders (1 source) Pain in left hip; Translations: [Pain in joint, pelvic region and thigh] 08-21-2023 Episodic Other screening for suspected conditions (not mental disorders or infectious disease) (16 sources) Patient encounter status; Translations: [Encounter for screening for malignant neoplasm of respiratory organs] Onset: 04-17-2023 Episodic Other upper respiratory infections (5 sources) Acute pharyngitis, unspecified; Translations: [Acute pharyngitis] 11-22-2022 Episodic Residual codes; unclassified (11 sources) Tobacco user; Translations: [Tobacco use] 11-26-2022 Episodic Residual codes; unclassified (13 sources) Tobacco use; Translations: [Tobacco use disorder] Episodic Spondylosis; intervertebral disc disorders; other back problems (7 sources) Degeneration of lumbar intervertebral disc; Translations: [Other intervertebral disc degeneration, lumbar region] Onset: 05-31-2021 05-31-2021 Chronic Spondylosis; intervertebral disc disorders; other back problems (20 sources) Sciatica; Translations: [Sciatica, unspecified side] Onset: 05-31-2021 03-02-2021 Episodic Sprains and strains (4 sources) Sprain of unspecified ligament of left ankle, initial encounter; Translations: [Sprain of left ankle] Onset: 07-06-2024 06-13-2024 Episodic Superficial injury; contusion (3 sources) Contusion of elbow; Translations: [Contusion of elbow] 12-18-2021 Episodic Unclassified (2 sources) HIT ELBOW ON HANDRAIL WHILE AT WORK. WORKS AT [employer] 12-18-2021 Comment on above: HIT ELBOW ON HANDRAI L WHILE AT WORK. WORKS AT [employer] Unclassified (1 source) Contusion of right elbow 12-18-2021 Unclassified (2 sources) LEFT RIB PAIN 04-04-2022 Comment on above: LEFT RIB PAIN Unclassified (1 source) Contusion of rib on left side 04-04-2022 Unclassified (1 source) Abrasion of upper extremity 04-04-2022 Unclassified (2 sources) 06/15/23 OV NOTE URGENT CARE Onset: 06-18-2023 Past or Other Problems Problem Classification Problem Date Documented Da te Episodic/Chronic E Codes: Cut/pierceb (3 sources) Contact with hypodermic needle, initial encounter; Translations: [Contact with hypodermic needle, initial encounter] Onset: 07-30-2022 Episodic Nonspecific chest pain (3 sources) Chest wall pain; Translations: [Other chest pain] Onset: 05-17-2023 05-17-2023 Episodic Other connective tissue disease (2 sources) Cramp in lower limb; Translations: [Cramp and spasm] Onset: 05-31-2021 05-31-2021 Episodic Results Test Name Value Interpretation Reference Range Facility Breast imaging reportOrdered By: Thanh Persaud on 04-15-2025 Study report [facility] Imaging Services [address] [place] [address] SCRN MAMM (CAD)W/LEIGH ANN BILAT MR#: [id number] Acct: [id number] Name: ADALI ALVAREZ Rep #: [id number] : 1960 F 65 From: Abimael Persaud MD PCP: Dr. Bella Franco MD Status: R EG CLI Study:SCRN MAMM (CAD)W/LEIGH ANN BILAT Date of Exa m: 04/15/25 Exam# [id number] Ordering Dr: Dayan Franco MD EXAM: SCRN MAMM (CAD)W/LEIGH ANN BILAT DATE: 04/15/2025 CLINICAL HISTORY: F, Age 65 y/o , BREAST CANCER SCREENING No family history. BREAST CANCER RISK ASSESSMENT: Not assessed. TECHNIQUE: Bilateral screening digital breast tomosynthesis with 2D and 3D images. Computeraided detection. COMPARISON: Prior exam(s) dated March 11, 2024.. FINDINGS: TISSUE DENSITY: The breast tissue is heterogenously dense, which may obscure small masses. Bilateral Breast Mammographic Findings: No significant masses, calcifications or other abnormalities are identified. No suspicious masses, areas of developing architectural distortion, or suspicious calcifications. There has been no significant interval change. BI/SCRN MAMM (CAD)W/LEIGH ANN BILAT IMPRESSION: OVERALL FINAL ASSESSMENT: BIRADS 1 NEGATIVE RECOMMENDATION: Routine annual follow-up in 1 Year A letter with findings and recommendations will be mailed to the patient. Reading Location: [facility] CC: Dr. Bella Franco MD ~ Bakery Helper: Signed [facility] SCRN MAMM (CAD)W/LEIGH ANN BILATo n 04-15-2025 SCRN MAMM (CAD)W/LEIGH ANN BILAT [facility] Imaging Services [address] [place] [place] [address] SCRN MAMM (CAD)W/LEIGH ANN BILAT MR#: [id number] Acct: [id number] Name: ADALI ALVAREZ Rep #: [id number] : 1960 F 65 From: Thanh vela MD PCP: Dr. Bella Franco MD Status: [facility] Study: SCRN MAMM (CAD)W/LEIGH ANN BILAT Date of Exam: 03/19 08/12 Exam# [id number] Ordering Dr: Bella Franco MD EXAM: SCRN MAMM (CAD)W/LEIGH ANN BILAT DATE: 04/15/2025 CLINICAL HISTORY: F, Age 65 y/o , BREAST CANCER SCREENING No family history. BREAST CANCER RISK ASSESSMENT: Not assessed. TECHNIQUE: Bilateral screening digital breast tomosynthesis with 2D and 3D images. Computer aided detection. COMPARISON: Prior exam(s) dated March 11, 2024.. FINDINGS: TISSUE DENSITY: The breast tissue is heterogenously dense, which may obscure small masses. Bilateral Breast Mammographic Findings: No significant masses, calcifications or other abnormalities are identified. No suspicious masses, areas of developing architectural distortion, or suspicious calcifications. There has been no significant interval change. BI/SCRN MAMM (CAD)W/LEIGH ANN BILAT IMPRESSION: OVERALL FINAL ASSESSMENT: BIRADS 1 NEGATIVE RECOMMENDATION: Routine annual follow-up in 1 Year A letter with findings and recommendations will be mailed to the patient. Reading Location: [facility] CC: Dr. Bella Franco MD Bakery Helper: Signed Normal [facility] Internal Medicine Office Vis itoryan 03-24-2025 Internal Medicine Office Visit [facility] [address] [place] [address] [place] [address] OFFICE VISIT Date of Service: 03/24/25 MR#: [id number] Acct: [id number] Name: ADALI ALVAREZ Rep #: [id number] : 1960 Provider: Dr. Bella castillo MD Age/Sex: 64/F Location: [facility] Status: Signed Intake Vital Signs 09/24/24 15:41 03/24/25 16:02 Height 5 ft 2 in 5 ft 2 in Weight: 132 lb 8 oz BMI 24.2 BP 118/76 Blood Pressure Location Lt brachial Position Sitting Respiration 16 Pulse 82 Pulse Source Monitor Temp 98 F Temp Source Temporal Pulse Oximetry (%) 95 Oxygen Delivery Method room air Intake Visit Reasons: 6 M FU Chief Complaint: Follow-up chronic conditions. Sore throat, cough Verifying Specialist Required: No Accompanied by: Self Is patient in pain?: No Allergies bee venom protein (honey bee) Allergy (Mild, Verified 03/24/25 16:00) Anaphylaxis Medications ???Medication ???Instructions ???Recorded ???Confirmed ???Type calcium carbonate (Calcium 600) 1,200 mg PO BID 02/23/21 03/24/25 History epinephrine 0.3 mg/0.3 mL 0.3 mg (0.3 mL) IM Q5-15M PRN 04/1903/24/25 Rx injection, auto-injector (EpiPen anaphylaxis #2 ea 2-Kyler) multivitamin 1 tab PO DAILY 11/23/21 03/24/25 H istory leg brace (Ankle Brace) #1 ea 11/22/22 03/24/25 Rx magnesium 200 mg tablet 200 mg PO DAILY 08/21/23 03/24/25 History cyclobenzaprine 10 mg tablet 10 mg PO HS PRN muscle spasm #14 0 06/13/24 03/24/25 Rx tabs metoprolol tartrate 100 mg tablet See Rx Instructions .Route 03/24/25 Rx .COMPLEX #180 tabs amlodipine 10 mg tablet 10 mg PO DAILY #90 tabs 10/28/24 0 03/24/25 Rx gabapentin 800 mg tablet See Rx Instructions .Route 5 03/24/25 Rx .COMPLEX #360 tabs hydrochlorothiazid e 12.5 mg tablet 12.5 mg PO DAILY #60 tabs 03/24/25 Rx Have you fallen in the past year?: No Nurse's Note: sore throat cough phlegm PFSH Medical History (Updated 03/24/25 @ 18:[address] Bella Franco MD) Cough Pharyngitis Lumbar radiculopathy Left ankle sprain Heart murmur Health care maintenance Encounter for screening for malignant neoplasm of lung in current smoker with 30 pack year history or greater Multiple lung nodules on CT Tobacco abuse Sciatica Back problem Hypertension Surgical History History of elbow surgery History of partial hysterectomy Family History Grandmother Breast cancer Cancer Brother Cancer Mother Diabetes Kidney disease Social History Smoking Status: Current every day smoker tobacco type: cigarettes Tobacco: How many years used: 40 second hand exposure: Yes quit status: considering quitting alcohol intake: current alcohol intake frequency: a few times a month substance use type: does not use what type of physical activity do you participate in: none HPI HPI Chief Complaint: Follow-up chronic conditions. Sore throat, cough Details: ADALI ALVAREZ, is a 64 F who presents to the office today for follow-up of her chronic conditions. Also has some concerns. She had sore throat yesterday and woke up this morning with cough. Feels unwell. 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 She does not know if this is due to COVID, flu or RSV. No recorded fever. History of hypertension, blood pressure today at 118/76 mmHg. Currently on amlodipine and hydrochlorothiazid e which she reports compliance with. No chest pain, palpitation or worsening shortness of breath. Other chronic medical conditions are largely stable. ROS Const Constitutional: No body ache, excessive sweating, fatigue, fever(s), frequent falls, headache(s), snoring, weakness, weight change, sleep problems or change in appetite Eyes Eyes: No blurry vision, change in vision, bulging eyes, floaters, visual disturbances, eye pain or Light sensitivity ENT ENT: Positive for sore throat; No abnormal hearing, ear or mastoid pain, tinnitus, balance problems, nosebleed/epistaxi s, nasal congestion, headache(s) or neck pain Resp Respiratory: Positive for cough; No shortness of breath, snoring or wheezing Cardio Cardiology: No chest pain at rest, chest pain with exertion, excessive sweating, shortness of breath, dyspnea on exertion, lightheadedness, orthopnea or palpitations Gastro GI: No abdominal pain, change in bowel habits, constipation, cramping, diarrhea, nausea/dyspepsia or vomiting Genitourinary-Fema le: No burning urination, painful urination, urinary incontinence, urinary frequency, blood in urine, suprapubic fullness, side pain, abnormal periods or pelvic pain Musc Musculoskeletal (more content not included)... Normal [facility] Laboratory - Microbiology an d Antimicrobial susceptibilityOrdered By: Bella Franco on 03-24-2025 SARS-CoV-2 (COVID-19) RNA ITZEL+probe Ql (Unsp spec) Not detected [facility] No Panel InformationOrdered By: Bella Franco on 03-24-2025 Influenza Types A,B Rapid (Clinic) Negative [facility] Rapid group A Streptococcus antigen assay at point of careOrdered By: Bella Franco on 03-24-2025 S. pyogenes Ag IA.rapid Ql (Throat) Negative [facility] Internal Medicine Office Vis iton 09-24-2024 Internal Medicine Office Visit [facility] [address] [place] [address] [place] [address] OFFICE VISIT Date of Service: 09/24/24 MR#: [id number] Acct: [id number] Name: ADALI ALVAREZ Rep #: [id number] : 1960 Provider: Dr. Bella castillo MD Age/Sex: 64/F Location: [facility] Status: Signed Intake Vital Signs 03/26/24 15:55 06/13/24 09:32 11/07/24 15:41 Height 5 ft 2 in 5 ft 2 in 5 ft 2 in Weight: 131 lb BMI 23.9 BP 132/80 H Blood Pressure Location Lt brachial Position Sitting Respiration 16 Pulse 74 Pulse Source Monitor Temp 97.4 F L Temp Source Temporal Pulse Oximetry (%) 97 Oxygen Delivery Method room air Intake Visit Reasons: 6 M FU Chief Complaint: Follow-up chronic conditions Verifying Specialist Required: No Is patient in pain?: No Allergies bee venom protein (honey bee) Allergy (Mild, Verified 09/24/24 15:36) Anaphylaxis Medications ???Medication ???Instructions ???Recorded ???Confirmed ???Type calcium carbonate (Calcium 600) 1,200 mg PO BID 02/23/21 09/24/24 History epinephrine 0.3 mg/0.3 mL 0.3 mg (0.3 mL) IM Q5-15M PRN 05/11/21 09/24/24 Rx injection, auto-injector (EpiPen anaphylaxis #2 ea 2-Kyler) multivitamin 1 tab PO DAILY 11/23/21 09/24/24 History leg brace (Ankle Brace) #1 ea 11/22/22 09/24/24 Rx magnesium 200 mg tablet 200 mg PO DAILY 08/21/23 09/24/24 History gabapentin 800 mg tablet See Rx Instructions .Route 11/13/23 09/24/24 Rx .COMPLEX #360 tabs cyclobenzaprine 10 mg tablet 10 mg PO HS PRN muscle spasm #14 06/13/24 09/24/24 Rx tabs hydrochlorothiazid e 12.5 mg tablet 12.5 mg PO DAILY #90 tabs 08/06/24 09/24/24 Rx amlodipine 10 mg tablet 10 mg PO DAILY #90 tabs 09/14/24 09/24/24 Rx metoprolol tartrate 100 mg tablet See Rx Instructions .Route 09/14/24 09/24/24 Rx .COMPLEX #180 tabs Nurse's Note: Declines flu vaccine. [facility] Medical History (Updated 09/24/24 @ 16:[address] Bella Franco MD) Lumbar radiculopathy Left ankle sprain Heart murmur Health care maintenance Encounter for screening for malignant neoplasm of lung in current smoker with 30 pack year history or greater Multiple lung nodules on CT Tobacco abuse Sciatica Back problem Hypertension Surgical History History of elbow surgery History of partial hysterectomy Family History Grandmother Breast cancer Cancer Brother Cancer Mother Diabetes Kidney disease Social History Smoking Status: Current every day smoker tobacco type: cigarettes Tobacco: How many years used: 40 second hand exposure: Yes quit status: considering quitting alcohol intake: current alcohol intake frequency: a few times a month substance use type: does not use what type of physical activity do you participate in: none HPI HPI Chief Complaint: Follow-up chronic conditions Details: ADALI ALVAREZ, is a 64 F who presents to the office today for follow-up of her chronic conditions. No acute concerns at this time. History of hypertension, blood pressure today at 132/80 mmHg. Currently on amlodipine and hydrochlorothiazid e which she reports compliance with. Also on metoprolol. No chest pain, palpitation or shortness of breath. Other chronic conditions are stable. Continues to smoke, not open to quitting. Yet to get labs done. ROS Const Constitutional: No body ache, chills, excessive sweating, fatigue, fever(s), frequent falls, headache(s), snoring, weakness, sleep problems or change in appetite Eyes Eyes: No blurry vision, change in vision, bulging eyes, floaters, visual disturbances, eye pain or Light sensitivity ENT ENT: No abnormal hearing, ear or mastoid pain, tinnitus, balance problems, nosebleed/epistaxi s, nasal congestion, headache(s), neck pain or sore throat Resp Respiratory: No cough, excessive phlegm production, pain on inspiration, shortness of breath, snoring or wheezing Cardio Cardiology: No chest pain at rest, chest pain with exertion, excessive sweating, shortness of breath, dyspnea on exertion, lightheadedness, orthopnea or palpitations Gastro GI: No abdominal pain, change in bowel habits, constipation, cramping, diarrhea, nausea/dyspepsia or vomiting Genitourinary-Fema le: No burning urination, painful urination, urinary incontinence, urinary frequency, suprapubic fullness, side pain, abnormal vaginal bleeding or pelvic pain Musc Musculoskeletal: No abnormal gait, joint pain, back pain, limited range of motion, muscle cramps, neck pain or numbness Skin Skin: No dry skin, redness, excessive hair growth, yellowing of the eye, lesions, itchy eyes, rash or wounds Neuro Neurology: No abnormal gait, abn (more content not included)... Normal [facility] Ankle min 3 Viewson 06-13-20 Ankle min 3 Views [facility] Services [address] [place] [address] Ankle min 3 Views MR#: [id number] Acct: [id number] Name: ADALI ALVAREZ Rep #: [id number] : 1960 F 64 From: Luis Song MD PCP: Dr. Bella Franco MD Status: REG CLI Study: Ankle min 3 Views Date of Exam: 06/13/24 Exam# [id number] Ordering Dr: Lj Samuel PA [id number] EXAM: XR LEFT ANKLE COMPLETE, 3 OR MORE VIEWS CLINICAL INDICATION: pain TECHNIQUE: Frontal, lateral and oblique views of the left ankle. COMPARISON: No relevant prior studies available. FINDINGS: BONES/JOINTS: No acute fracture or subluxation. SOFT TISSUES: Mild lateral soft tissue swelling. No radiopaque foreign body. RAD/Ankle min 3 Views IMPRESSION: No acute bone or joint abnormality. Electronically Signed: Luis Song MD at 10:19 EDT , CC: Dr. Bella Franco MD; SONAM Chacko Bakery Helper: Signed Normal [facility] Urgent Care Visit Reporton 0 06-13-2024 Urgent Care Visit Report [facility] [address], [address] [place] [address] OFFICE VISIT Date of Service: 06/13/24 MR#: [id number] Acct: [id number] Name: ADALI ALVAREZ Rep #: [id number] : 1960 Provider: SONAM Chacko Age/Sex: 64/F Location: [facility] Status: Signed Intake Vital Signs 03/26/24 15:55 06/13/24 09:32 Height 5 ft 2 in 5 ft 2 in Weight: 130 lb 125 lb BMI 23.8 22.8 BP 138/82 H 142/80 H Blood Pressure Location Lt brachial Lt brachial Position Sitting Sitting Respiration 16 16 Pulse 86 72 Pulse Source Monitor NIBP Temp 97.4 F L 98.6 F Temp Source Temporal Temporal Pulse Oximetry (%) 98 98 Oxygen Delivery Method room air room air Intake Visit Reasons: L FOOT/ANKLE SWELLING Chief Complaint: left ankle swelling Verifying Specialist Required: No Is patient in pain?: Yes Allergies bee venom protein (honey bee) Allergy (Mild, Verified 06/13/24 09:32) Anaphylaxis Medications ???Medication ???Instructions ???Recorded ???Confirmed ???Type calcium carbonate (Calcium 600) 1,200 mg PO BID 02/23/21 06/13/24 History epinephrine 0.3 mg/0.3 mL 0.3 mg (0.3 mL) IM Q5-15M PRN 05/11/21 06/13/24 Rx injection, auto-injector (EpiPen anaphylaxis #2 ea 2-Kyler) multivitamin 1 tab PO DAILY 11/23/21 06/13/24 History leg brace (Ankle Brace) #1 ea 11/22/22 03/26/24 Rx magnesium 200 mg tablet 200 mg PO DAILY 08/21/23 06/13/24 History amlodipine 10 mg tablet 10 mg PO DAILY #90 tabs 11/13/23 06/13/24 Rx gabapentin 800 mg tablet See Rx Instructions .Route 11/13/23 06/13/24 Rx .COMPLEX #360 tabs metoprolol tartrate 100 mg tablet See Rx Instructions .Route 11/13/23 06/13/24 Rx .COMPLEX #180 tabs hydrochlorothiazid e 12.5 mg tablet 12.5 mg PO DAILY #90 tabs 03/02/24 06/13/24 Rx cyclobenzaprine 10 mg tablet 10 mg PO HS PRN muscle spasm #14 06/13/24 06/13/24 Rx tabs methylprednisolone 4 mg tablets in See Rx Instructions PO PER PKG DIR 06/13/24 06/13/24 Rx a dose pack (Medrol (Kyler)) #21 tabs Is last menstrual period known: No Post menopausal: Yes Patient : No Nurse's Note: pain/swelling/redn ess to left lateral ankle x 3 weeks. denies injury or over use, denies trauma to area. PFSH Medical History Heart murmur Health care maintenance Encounter for screening for malignant neoplasm of lung in current smoker with 30 pack year history or greater Multiple lung nodules on CT Tobacco abuse Sciatica Back problem Hypertension Surgical History History of elbow surgery History of partial hysterectomy Family History Grandmother Breast cancer Cancer Brother Cancer Mother Diabetes Kidney disease Social History Smoking Status: Current every day smoker tobacco type: cigarettes Tobacco: How many years used: 40 second hand exposure: Yes quit status: considering quitting alcohol intake: current alcohol intake frequency: a few times a month substance use type: does not use what type of physical activity do you participate in: none HPI HPI Chief Complaint: left ankle swelling Details: ADALI ALVAREZ, is a 64 F who presents to the office today for initial evaluation approximately 3- week history of left lateral ankle soft tissue swelling and pain of unknown etiology, states she likely rolled her ankle and does not recall specifically when it occurred. 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 PMH NC. No left knee or foot complaints. No [id number] products taken to assist. No other associated symptoms and no other alleviating/aggrav ating factors. ROS Const Constitutional: No other (As above) Exam Const General: cooperative, healthy appearing and no acute distress Orientation: alert and awake Resp Effort Inspection: normal respiratory effort and able to speak in complete sentences Cardio Rate: regular rate Pulses: radial pulses present GI Inspection: normal to inspection Skin General: no rashes or lesions noted Neuro General: patient alert and patient awake Cognition: normal cognition Speech: speech normal Extrem General: full ROM, capillary refill normal and normal exam except as noted Other: Left lateral ankle soft tissue swelling distal to lateral malleolus with inversion left ankle exacerbation lateral tenderness. Eversion and dorsiflexion and plantarflexion do not exacerbate discomfort. Negative drawer, no Achilles step-off or palpable tenderness, and no plantar fascia tenderness to palpation. FAROM x 5 digits distally. (more content not included)... Normal [facility] Absolute lymphocyte countOrd ered By: Bella Franco on 09-19-2023 Lymphocytes Auto (Unsp spec) [#/Vol] 3.69 10*3/uL 0.83-4.51 [facility] Basophil percentageOrdered B y: Bella Franco on 09-19-2023 Basophils/100 WBC (Bld) 1.0 % 0-1 [facility] Bilirubin [Mass/Vol] 0.30 mg/dL 0.20-1.00 [facility] Comment on above: For patients on eltr ombopag therapy, use of Dimension [place] TBIL is not recommended. Chloride [Moles/Vol] 107 mmol/L 98-107 [facility] Cholesterol [Mass/Vol] 267 mg/dL <200 [facility] Comment on above: <200 mg/dL Desirable 200-240 mg/dL Borderline >240 mg/dL High Risk Eosinophils/100 WBC (Bld) 6.5 % 0-5 [facility] Glucose [Mass/Vol] 98 mg/dL 74-106 [facility] Neutrophils (Bld) [#/Vol] 7.0 10*3/uL 2.0-7.7 [facility] Neutrophils/100 WBC (Bld) 54.5 % 47-70 [facility] Potassium [Moles/Vol] 3.9 mmol/L 3.5-5.1 [facility] Protein [Mass/Vol] 8.1 g/dL 6.4-8.2 [facility] Sodium [Moles/Vol] 138 mmol/L 136-145 [facility] Triglyceride [Mass/Vol] 297 mg/dL <199 [facility] Comment on above: The drugs N-Acetylcy steine and Metamizole may falsely depress this assay.Serum Triglycerides Reference Interval Normal <150 mg/dL Borderline high 150 - 199 mg/dL High 200 - 499 mg/dL Very High > or = 500 mg/dL WBC (Bld) [#/Vol] 12.9 10*3/uL 4.4-11.0 [facility] Blood erythrocytes count (nu mber/volume)Ordered By: Bella Franco on 09-19-2023 RBC (Bld) [#/Vol] 3.99 10*6/uL 4.2-5.4 [facility] Blood hemoglobin measurement (mass/volume)Ordered By: Bella Franco on 09-19-2023 Hemoglobin (Bld) [Mass/Vol] 12.7 g/dL 12.0-15.0 [facility] Blood lymphocytes/100 leukoc ytesOrdered By: Bella Franco on 09-19-2023 Lymphocytes/100 WBC (Bld) 28.5 % 19-41 [facility] Blood monocytes/100 leukocyt esOrdered By: ceciliamohegan laketravis Franco on 09-19-2023 Monocytes/100 WBC (Bld) 9.2 % 0-10 [facility] Blood platelet mean volumeOr dered By: Bella Franco on 09-19-2023 Platelet mean volume (Bld) [Entitic vol] 11.7 fL 6.2-12.0 [facility] Determination of erythrocyte mean corpuscular volume (MCV)Ordered By: Bella Franco on 09-19-2023 MCV (RBC) [Entitic vol] 91.0 fL 81-99 [facility] Hematocrit Auto (Bld) [Volum e fraction]Ordered By: Bella Franco on 09-19-2023 Hematocrit (Bld) [Volume fraction] 36.3 % 37-47 [facility] Laboratory - Chemistry and C hemistry - challengeOrdered By: Bella Franco on 09-19-2023 ALP [Catalytic activity/Vol] 105 U/L 45-117 [facility] ALT [Catalytic activity/Vol] 31 U/L 13-56 [facility] CO2 [Moles/Vol] 26.0 mmol/L 21.0-32.0 [facility] Globulin (S) [Mass/Vol] 4.4 g/dL 2.2-4.2 [facility] Urea nitrogen/Creatinine [Mass ratio] 20.0 mg/mg 10-20 [facility] - Hematology and Cell countsOrdered By: Bella Franco on 09-19-2023 Erythrocyte distribution width (RBC) [Entitic vol] 40.8 fL 35.1-43.9 [facility] Erythrocyte distribution width (RBC) [Ratio] 12.3 % 11.6-14.6 [facility] Immature granulocytes/100 WBC (Bld) 0.300 % 0.0-0.9 [facility] Comment on above: IG% - Immature Granu locytes (promyelocytes, myelocytes and metamyelocytes) > 1% indicates that a LEFT SHIFT is Present. MCH (RBC) [Entitic mass] 31.8 pg 27.0-32.0 [facility] Nucleated RBC/100 WBC (Bld) [Ratio] 0 % 0-5 [facility] MCHC Auto (RBC) [Mass/Vol]Or dered By: Bella Franco on 09-19-2023 MCHC (RBC) [Mass/Vol] 35.0 g/dL 32-36 [facility] No Panel InformationOrdered By: Bella Franco on 09-19-2023 Estimated GFR (MDRD) Amer 61 mL/min >60 [facility] Comment on above: GFR Calc Estimated GFR (MDRD) Non-Af Amer 51 mL/min >60 [facility] Comment on above: Non- GFR Calc Platelets bldOrdered By: Venkata Franco on 09-19-2023 Platelets (Bld) [#/Vol] 298 10*3/uL 150-450 [facility] Serum or plasma albumin minor urement (mass/volume)Ordered By: Bella Franco on 09-19-2023 Albumin [Mass/Vol] 3.7 g/dL 3.2-5.0 [facility] Serum or plasma albumin/glob ulin mass ratioOrdered By: Bella Franco on 09-19-2023 Albumin/Globulin [Mass ratio] 0.8 {ratio} 0.9-2.4 [facility] Serum or plasma calcium minor urement (mass/volume)Ordered By: Bella Franco on 09-19-2023 Calcium [Mass/Vol] 9.3 mg/dL 8.5-10.1 [facility] Serum or plasma cholesterol in HDL measurement (mass/volume)Ordered By: Bella Franco on 09-19-2023 Cholesterol in HDL [Mass/Vol] 58 mg/dL >40 [facility] Comment on above: The drugs N-Acetylcy steine and Metamizole may falsely depress this assay. Reference Range HDL <40 mg/dL Low HDL Cholesterol HDL >or= 60 mg/dL High HDL Cholesterol Serum or plasma cholesterol in VLDL measurement (mass/volume)Ordered By: Bella Franco on 09-19-2023 Cholesterol in VLDL [Mass/Vol] 59 mg/dL 5-40 [facility] Serum or plasma creatinine m easurement (mass/volume)Ordered By: Bella Franco on 09-19-2023 Creatinine [Mass/Vol] 1.15 mg/dL 0.55-1.02 [facility] Comment on above: The validity of the calculated GFR & GFRAA in patients over 70 years has not been determined. Clinical correlation is essential. Serum or plasma low density lipoprotein (LDL) cholesterol measurement (mass/volume)Ordered By: Bella Franco on 09-19-2023 Cholesterol in LDL [Mass/Vol] 150 mg/dL 0-130 [facility] Serum or plasma urea nitroge n measurement (mass/volume)Ordered By: Bella Franco on 09-19-2023 Urea nitrogen [Mass/Vol] 23 mg/dL 7-18 [facility] Thin prep Papanicolaou smear with manual screeningOrdered By: Bella Franco on 09-19-2023 Thin prep Papanicolaou smear with manual screening 27 U/L 15-37 [facility] Thin prep Papanicolaou smear with manual screening 5 5-15 [facility] Basic metabolic 2000 panelon 04-19-2023 Anion gap [Moles/Vol] 12 mmol/L 10 - 20 mmol/L [facility] Calcium [Mass/Vol] 9.3 mg/dL 8.4 - 10. 2 mg/dL [facility] Chloride [Moles/Vol] 108 mmol/L 98 - 10 8 mmol/L [facility] Creatinine [Mass/Vol] 1.05 mg/dL 0.60 - 1.20 mg/dL [facility] GFR/1.73 sq M.predicted CKD-EPI (S/P/Bld) [Vol rate/Area] 60 - PINF [facility] Comment on above: Estimated GFR was ca lculated using the 2020 CKD-EPI creatinine equation. Glucose [Mass/Vol] 116 mg/dL High 65 - 99 mg/dL [facility] HCO3 [Moles/Vol] 22 mmol/L 21 - 32 mmol/L [facility] Potassium [Moles/Vol] 3.7 mmol/L 3.5 - 5.1 mmol/L [facility] Sodium [Moles/Vol] 138 mmol/L 135 - 145 mmol/L [facility] Urea nitrogen [Mass/Vol] 31 mg/dL High 8 - 25 mg/d L [facility] Urea nitrogen/Creatinine [Mass ratio] 29.5 mg/mg High 10.0 - 20.0 [facility] has implemented the eGFR calculation approach that does not have a coefficient for race that conforms to the NKF-ASN Task Force Recommendations. [facility] Hepatic function 2000 panelo n 04-19-2023 Albumin [Mass/Vol] 3.8 g/dL 3.2 - 5.2 g/dL [facility] ALP [Catalytic activity/Vol] 91 U/L 40 - 150 U/L [facility] ALT [Catalytic activity/Vol] 29 U/L 14 - 65 U/L [facility] AST [Catalytic activity/Vol] 26 U/L 0 - 45 U/L [facility] Bilirubin [Mass/Vol] 0.3 mg/dL 0.0 - 1 .3 mg/dL [facility] Bilirubin.conjugated [Mass/Vol] mg/dL 0.0 - 0.4 mg/dL [facility] Protein [Mass/Vol] 8.1 g/dL High 6.0 - 8.0 g/dL [facility] Lipid 1996 panelon Cholesterol [Mass/Vol] 268 mg/dL High 100 - 199 mg/dL [facility] Comment on above: National Cholesterol Education Program Guidelines: Cholesterol Desirable: <200 mg/dL Borderline High: 200-239 mg/dL High: greater than or equal to 240 mg/dL Cholesterol in HDL [Mass/Vol] 60 mg/dL 40 - 59 mg/dL [facility] Comment on above: National Cholesterol Education Program Guidelines: HDL Cholesterol Low: <40 mg/dL Near Optimal: 40-59 mg/dL High: greater than or equal to 60 mg/dL Cholesterol in LDL [Mass/Vol] 142 mg/dL High 10 - 130 mg/dL [facility] Comment on above: National Cholesterol Education Program Guidelines: LDL Cholesterol Optimal: <100 mg/dL Near Optimal/above Optimal: 100-129 mg/dL Borderline High: 130-159 mg/dL High: 160-189 mg/dL Very High: greater than or equal to 190 mg/dL Cholesterol non HDL [Mass/Vol] 208 mg/dL [facility] Comment on above: National Cholesterol Education Program Guidelines: NON HDL Cholesterol Desirable: <130 mg/dL Borderline High: 130-159 mg/dL High: 160-189 mg/dL Very High: > or = 190 mg/dL Cholesterol.total/Cholest ashley in HDL [Mass ratio] 4.5 {ratio} ratio [facility] Comment on above: Female Cholesterol/H DL Ratio: Average risk: 4.4 1/2 average risk: 3.3 2 x average risk: 7.1 Triglyceride [Mass/Vol] 330 mg/dL High 30 - 150 mg/ dL [facility] Comment on above: National Cholesterol Education Program Guidelines: Triglyceride Normal: <150 mg/dL Borderline High: 150-199 mg/dL High: 200-499 mg/dL Very High: greater than or equal to 500 mg/dL No Panel Informationon 04-19 Interpretation and review of laboratory results Abnormal [facility] HEPATITIS B SURF ABon 2022 HEP B SURF AB 214.6 mIU/mL Normal <10 [facility] Comment on above: Order Comment: [facility] H EALT Result Comment: INTE RPRETIVE CRITERIA: <10 mIU/mL....NONREACTIVE >=10 mIU/mL...REACTIVE . Biotin interference may cause falsely decreased results. Patients taking a Biotin dose of up to 5 mg/day should refrain from taking Biotin for 24 hours before sample collection. Providers may contact their local laboratory for further information. Performed By: #### H BAB3 #### [facility] [address] [place] [address] Laboratory - Microbiology an d Antimicrobial susceptibilityOrdered By: Marlen Abernathy on 11-22-2022 SARS-CoV-2 (COVID-19) RNA ITZEL+probe Ql (Unsp spec) Not detected Not Detect [facility] Comment on above: Normal Reference Ran ge: Not DetectedMethod:(RT-PCR) real-time reverse transcriptase PCRLuminex ARNOLDO Instrument*The Food and Drug Administration (FDA) has issued an Emergency Use Authorization (EAU) for the ARNOLDO SARS-CoV-2 Assay for the rapid detection of the virus that causes COVID-19. This test has been validated, but the FDAs independent review of this validation is pending.*Negative results do not preclude infection and should not be used as the sole basis for treatment or patient management. Optimum specimen types and timing for peak viral levels during infections caused by SARS-CoV-2 have not been determined. Collection of multiple specimens from the same patient may be necessary to detect the virus. The possibility of a false negative result should be considered if the patient has clinical presentation or has had recent exposure. HEPATITIS B SURF ABon 2021 HEP B SURF AB <3.1 Normal <10 [facility] Comment on above: Order Comment: [facility] E[facility] Result Comment: INTE RPRETIVE CRITERIA: <10 mIU/mL....NONREACTIVE >=10 mIU/mL...REACTIVE . Biotin interference may cause falsely decreased results. Patients taking a Biotin dose of up to 5 mg/day should refrain from taking Biotin for 24 hours before sample collection. Providers may contact their local laboratory for further information. Performed By: #### H BAB3 #### [facility] [address] [place] [address] HEPATITIS B SURFACE AGon HEP.B SURFACE AG Non-Reactive Normal NONREACTIVE [facility] Comment on above: Order Comment: [facility] Result Comment: Biot in interference may cause falsely decreased results. Patients taking a Biotin dose of up to 5 mg/day should refrain from taking Biotin for 24 hours before sample collection. Providers may contact their local laboratory for further information. Performed By: #### H BSAG #### [facility] [address] [place] [address] HEPATITIS C ABon 09-04-2022 HEPATITIS C AB Non-Reactive Normal NONREACTIVE [facility] Comment on above: Order Comment: [facility] Result Comment: Resu lts from patients taking biotin supplements or receiving high-dose biotin therapy should be interpreted with caution due to possible interference with this test. Providers may contact their local laboratory for further information. Performed By: #### H CVAB #### [facility] [address] [place] [address] COMPREHENSIVE PANELon 2021 Albumin [Mass/Vol] 4.4 g/dL Normal 3.4 - 5.0 [facility] Comment on above: Order Comment: [facility] Performed By: #### C MP #### [address] [address] ALP [Catalytic activity/Vol] 86 U/L Normal 33 - 136 [facility] Comment on above: Order Comment: [facility] Performed By: #### C MP #### [address] [address] ALT [Catalytic activity/Vol] 19 U/L Normal 7 - 45 [facility] Comment on above: Order Comment: [facility] Result Comment: Larisa ents treated with Sulfasalazine may generate falsely decreased results for ALT. Performed By: #### C MP #### [address] [address] Anion gap [Moles/Vol] 14 mmol/L Normal 10 - [address] [facility] Comment on above: Order Comment: [facility] Performed By: #### C MP #### [address] [address] AST [Catalytic activity/Vol] 27 U/L Normal 9 - 39 [facility] Comment on above: Order Comment: [facility] Performed By: #### C MP #### [address] [address] Bilirubin [Mass/Vol] 0.4 mg/dL Normal 0.0 - 1.2 [facility] Comment on above: Order Comment: [facility] Performed By: #### C MP #### [address] [address] Calcium [Mass/Vol] 9.5 mg/dL Normal 8.6 - 10.3 [facility] Comment on above: Order Comment: [facility] Performed By: #### C MP #### [address] [address] Chloride [Moles/Vol] 106 mmol/L Normal 98 - 107 [facility] Comment on above: Order Comment: [facility] Performed By: #### C MP #### [address] [address] Creatinine [Mass/Vol] 0.97 mg/dL Normal 0.50 - 1.05 [facility] Comment on above: Order Comment: [facility] Performed By: #### C MP #### [address] [address] GFR/1.73 sq M.predicted among non-blacks MDRD (S/P/Bld) [Vol rate/Area] 66 mL/min/{1.73_m2} Normal >90 [facility] Comment on above: Order Comment: [facility] Result Comment: CALC ULATIONS OF ESTIMATED GFR ARE PERFORMED USING THE 2020 CKD-EPI STUDY REFIT EQUATION WITHOUT THE RACE VARIABLE FOR THE IDMS-TRACEABLE CREATININE METHODS. https://jasn.asnjournals.org/content//ASN.20 27224748 Performed By: #### C MP #### [address] [address] Glucose [Mass/Vol] 96 mg/dL Normal 74 - 99 [facility] Comment on above: Order Comment: [facility] Performed By: #### C MP #### [address] [address] HCO3 (Bld) [Moles/Vol] 21 mmol/L Normal 21 - 32 [facility] Comment on above: Order Comment: [facility] Performed By: #### C MP #### [address] [address] Potassium [Moles/Vol] 4.0 mmol/L Normal 3.5 - 5.[address] [facility] Comment on above: Order Comment: [facility] Performed By: #### C MP #### [address] [address] Protein [Mass/Vol] 7.9 g/dL Normal 6.4 - 8.2 [facility] Comment on above: Order Comment: [facility] Performed By: #### C MP #### [address] [address] Sodium [Moles/Vol] 137 mmol/L Normal 136 - 145 [facility] Comment on above: Order Comment: [facility] Performed By: #### C MP #### [address] [address] Urea nitrogen [Mass/Vol] 23 mg/dL Normal 6 - 23 [facility] Comment on above: Order Comment: [facility] Performed By: #### C MP #### [address] [address] HEPATITIS C ABon 09-03-2022 Lab Specimen Source Normal [facility] Comment on above: Order Comment: O[facility] Performed By: #### H CVAB #### [facility] [address] [place] [address] Performed By: #### H BSAG #### [facility] [address] [place] [address] Performed By: #### R HIV #### [address] [address] Performed By: #### H BAB3 #### [facility] [address] [place] [address] RAPID HIVon 09-03-2022 RAPID HIV Non-Reactive Normal NONREACTIVE [facility] Comment on above: Order Comment: [facility] Result Comment: Biot in may cause falsely negative p24 antigen results leading to decreased detection of early HIV infection. Patients taking supplements containing biotin should be tested by the HIV 1/2 Antigen/Antibody Screen with Reflex. Providers may contact their local laboratory for further information. Performed By: #### R HIV #### [place] [id number] HEPATITIS B SURF ABon 2021 HEP B SURF AB <3.1 Normal <10 [facility] Comment on above: Order Comment: [facility], ACCIDENTAL NEEDLE STICK Result Comment: INTE RPRETIVE CRITERIA: <10 mIU/mL....NONREACTIVE >=10 mIU/mL...REACTIVE . Biotin interference may cause falsely decreased results. Patients taking a Biotin dose of up to 5 mg/day should refrain from taking Biotin for 24 hours before sample collection. Providers may contact their local laboratory for further information. Performed By: #### H BAB3 #### [facility] [address] [place] [id number] HEPATITIS C ABon 07-31-2022 HEPATITIS C AB Non-Reactive Normal NONREACTIVE [facility] Comment on above: Order Comment: OCC [facility] EALTH, ACCIDENTAL NEEDLE STICK Result Comment: Resu lts from patients taking biotin supplements or receiving high-dose biotin therapy should be interpreted with caution due to possible interference with this test. Providers may contact their local laboratory for further information. Performed By: #### H CVAB #### [facility] [address] [place] [id number] RAPID HIVon 07-30-2022 RAPID HIV Non-Reactive Normal NONREACTIVE [facility] Comment on above: Order Comment: [facility], ACCIDENTAL NEEDLE STICK Result Comment: Biot in may cause falsely negative p24 antigen results leading to decreased detection of early HIV infection. Patients taking supplements containing biotin should be tested by the HIV 1/2 Antigen/Antibody Screen with Reflex. Providers may contact their local laboratory for further information. Performed By: #### R HIV #### [place] [address] Lab Specimen Source Normal [facility] Comment on above: Order Comment: OCC H EALTH, ACCIDENTAL NEEDLE STICK Performed By: #### R HIV #### [place] [address] Performed By: #### H BAB3 #### [facility] [address] [place] [address] Performed By: #### H CVAB #### [facility] [address] [place] [address] Absolute lymphocyte counton 07-27-2022 Lymphocytes Auto (Unsp spec) [#/Vol] 3.55 10*3/uL 0.83-4.51 [facility] Work Phone: [phone] Basophil percentageon 2021 Basophils/100 WBC (Bld) 0.9 % 0-1 [facility] Work Phone: Bilirubin [Mass/Vol] 0.40 mg/dL 0.20-1.00 [facility] Work Phone: [phone] Comment on above: For patients on eltr ombopag therapy, use of Dimension [place] TBIL is not recommended. Chloride [Moles/Vol] 105 mmol/L 98-107 [facility] Work Phone: Cholesterol [Mass/Vol] 273 mg/dL <200 [facility] Work Phone: [phone] Comment on above: <200 mg/dL Desirable 200-240 mg/dL Borderline >240 mg/dL High Risk Eosinophils/100 WBC (Bld) 6.0 % 0-5 [facility] Work Phone: [phone] Glucose [Mass/Vol] 93 mg/dL 74-106 [facility] Work Phone: [phone] Neutrophils (Bld) [#/Vol] 6.9 10*3/uL 2.0-7.7 [facility] Work Phone: Neutrophils/100 WBC (Bld) 55.8 % 47-70 [facility] Work Phone: [phone] Potassium [Moles/Vol] 4.8 mmol/L 3.5-5.1 [facility] Work Phone: Protein [Mass/Vol] 8.8 g/dL 6.4-8.2 [facility] Work Phone: [phone] Sodium [Moles/Vol] 138 mmol/L 136-145 [facility] Work Phone: Triglyceride [Mass/Vol] 238 mg/dL <199 [facility] Work Phone: Comment on above: The drugs N-Acetylcy steine and Metamizole may falsely depress this assay.Serum Triglycerides Reference Interval Normal <150 mg/dL Borderline high 150 - 199 mg/dL High 200 - 499 mg/dL Very High > or = 500 mg/dL WBC (Bld) [#/Vol] 12.4 10*3/uL 4.4-11.0 [facility] Work Phone: Blood erythrocytes count (nu mber/volume)on 07-27-2022 RBC (Bld) [#/Vol] 4.39 10*6/uL 4.2-5.4 [facility] Work Phone: Blood hemoglobin measurement (mass/volume)on 07-27-2022 Hemoglobin (Bld) [Mass/Vol] 14.1 g/dL 12.0-15.0 [facility] Work Phone: Blood lymphocytes/100 leukoc yteson 07-27-2022 Lymphocytes/100 WBC (Bld) 28.6 % 19-41 [facility] Work Phone: Blood monocytes/100 leukocyt eson 07-27-2022 Monocytes/100 WBC (Bld) 8.2 % 0-10 [facility] Work Phone: Blood platelet mean volumeon 07-27-2022 Platelet mean volume (Bld) [Entitic vol] 11.7 fL 6.2-12.0 [facility] Work Phone: Determination of erythrocyte mean corpuscular volume (MCV)on 07-27-2022 MCV (RBC) [Entitic vol] 92.9 fL 81-99 [facility] Work Phone: Hematocrit Auto (Bld) [Volum e fraction]on 07-27-2022 Hematocrit (Bld) [Volume fraction] 40.8 % 37-47 [facility] Work Phone: Laboratory - Chemistry and C hemistry - challengeon 07-27-2022 ALP [Catalytic activity/Vol] 100 U/L 45-117 [facility] Work Phone: ALT [Catalytic activity/Vol] 34 U/L 13-56 [facility] Work Phone: CO2 [Moles/Vol] 26.0 mmol/L 21.0-32.0 [facility] Work Phone: Globulin (S) [Mass/Vol] 4.8 g/dL 2.2-4.2 [facility] Work Phone: Urea nitrogen/Creatinine [Mass ratio] 24.5 mg/mg 10-20 [facility] Work Phone: Laboratory - Hematology and Cell countson 07-27-2022 Erythrocyte distribution width (RBC) [Entitic vol] 41.5 fL 35.1-43.9 [facility]: Erythrocyte distribution width (RBC) [Ratio] 12.1 % 11.6-14.6 [facility] Work Phone: Immature granulocytes/100 WBC (Bld) 0.500 % 0.0-0.9 [facility] Work Phone: Comment on above: IG% - Immature Granu locytes (promyelocytes, myelocytes and metamyelocytes) > 1% indicates that a LEFT SHIFT is Present. MCH (RBC) [Entitic mass] 32.1 pg 27.0-32.0 [facility] Work Phone: Nucleated RBC/100 WBC (Bld) [Ratio] 0 % 0-5 [facility] Work Phone: MCHC Auto (RBC) [Mass/Vol]on 07-27-2022 MCHC (RBC) [Mass/Vol] 34.6 g/dL 32-36 [facility] Work Phone: No Panel Informationon 07-27 Estimated GFR (MDRD) Amer 92 mL/min >60 [facility] Work Phone: Comment on above: GFR Calc Estimated GFR (MDRD) Non-Af Amer 76 mL/min >60 [facility] Work Phone: Comment on above: Non- GFR Calc Platelets bldon 07-27-2022 Platelets (Bld) [#/Vol] 314 10*3/uL 150-450 [facility] Work Phone: Serum or plasma albumin minor urement (mass/volume)on 07-27-2022 Albumin [Mass/Vol] 4.0 g/dL 3.2-5.0 [facility] Work Phone: Serum or plasma albumin/glob ulin mass ratioon 07-27-2022 Albumin/Globulin [Mass ratio] 0.8 {ratio} 0.9-2.4 [facility] Work Phone: Serum or plasma calcium minor urement (mass/volume)on 07-27-2022 Calcium [Mass/Vol] 9.6 mg/dL 8.5-10.1 [facility] Work Phone: Serum or plasma cholesterol in HDL measurement (mass/volume)on 07-27-2022 Cholesterol in HDL [Mass/Vol] 60 mg/dL >40 [facility] Work Phone: Comment on above: The drugs N-Acetylcy steine and Metamizole may falsely depress this assay. Reference Range HDL <40 mg/dL Low HDL Cholesterol HDL >or= 60 mg/dL High HDL Cholesterol Serum or plasma cholesterol in VLDL measurement (mass/volume)on 07-27-2022 Cholesterol in VLDL [Mass/Vol] 48 mg/dL 5-40 [facility] Work Phone: Serum or plasma creatinine m easurement (mass/volume)on 07-27-2022 Creatinine [Mass/Vol] 0.82 mg/dL 0.55-1.02 [facility] Work Phone: Comment on above: The validity of the calculated GFR & GFRAA in patients over 70 years has not been determined. Clinical correlation is essential. Serum or plasma low density lipoprotein (LDL) cholesterol measurement (mass/volume)on 07-27-2022 Cholesterol in LDL [Mass/Vol] 165 mg/dL 0-130 [facility] Work Phone: Serum or plasma urea nitroge n measurement (mass/volume)on 07-27-2022 Urea nitrogen [Mass/Vol] 20 mg/dL 7-18 [facility] Work Phone: Thin prep Papanicolaou smear with manual screeningon 07-27-2022 Thin prep Papanicolaou smear with manual screening 28 U/L 15-37 [facility] Work Phone: Thin prep Papanicolaou smear with manual screening 7 5-15 [facility] Work Phone: Vital Signs Date Time Vital Sign Value Performing Clinician Facility 06-24-2025 10:01-0400 Body temperature 98.2 [degF] Dr. Bella Franco MD Work Phone: [facility] 06-24-2025 10:01-0400 Diastolic blood pressure 66 mm[Hg] Dr. Bella Franco MD Work Phone: [facility] 06-24-2025 10:01-0400 Heart rate 71 /min Dr. Bella Franco MD Work Phone: [facility] 06-24-2025 10:01-0400 Respiratory rate 15 /min Dr. Bella Franco MD Work Phone: [facility] 06-24-2025 10:01-0400 SaO2% (BldA) [Mass fraction] 97 % Dr. Bella Franco MD Work Phone: [facility] 06-24-2025 10:01-0400 Systolic blood pressure 134 mm[Hg] Dr. Bella Franco MD Work Phone: [facility] 03-24-2025 16:02-0400 Body height 157.[address] Bella Franco MD Work Phone: [facility] 03-24-2025 16:02-0400 Body mass index (BMI) [Ratio] 24.2 kg/m2 Dr. Bella Franco MD Work Phone: [facility] 03-24-2025 16:02-0400 Body temperature 98 [degF] Dr. Bella Franco MD Work Phone: [facility] 03-24-2025 16:02-0400 Body weight 60.[address] Bella Franco MD Work Phone: [facility] 03-24-2025 16:02-0400 Diastolic blood pressure 76 mm[Hg] Dr. Bella Franco MD Work Phone: [facility] 03-24-2025 16:02-0400 Heart rate 82 /min Dr. Bella Franco MD Work Phone: [facility] 03-24-2025 16:02-0400 Respiratory rate 16 /min Dr. Bella Franco MD Work Phone: [facility] 03-24-2025 16:02-0400 SaO2% (BldA) [Mass fraction] 95 % Dr. Bella Franco MD Work Phone: [facility] 03-24-2025 16:02-0400 Systolic blood pressure 118 mm[Hg] Dr. Bella Franco MD Work Phone: [facility] 09-19-2023 14:58-0400 Body height 157.[address] Bella Franco Work Phone: [facility] 09-19-2023 14:58-0400 Body mass index (BMI) [Ratio] 25.6 kg/m2 Dr. Bella Franco Work Phone: [facility] 09-19-2023 14:58-0400 Body temperature 97 [degF] Dr. Bella Franco Work Phone: [facility] 09-19-2023 14:58-0400 Body weight 63.[address] Bella Franco Work Phone: [facility] 09-19-2023 14:58-0400 Diastolic blood pressure 80 mm[Hg] Dr. Bella Franco Work Phone: [facility] 09-19-2023 14:58-0400 Heart rate 86 /min Dr. Bella Franco Work Phone: [facility] 09-19-2023 14:58-0400 SaO2% (BldA) [Mass fraction] 92 % Dr. Bella Franco Work Phone: [facility] 09-19-2023 14:58-0400 Systolic blood pressure 134 mm[Hg] Dr. Bella Franco Work Phone: [facility] 05-17-2023 14:38-0400 Diastolic blood pressure 79 mm[Hg] Russell Morocho MD Work Phone: [facility] 05-17-2023 14:38-0400 Heart rate 85 /min Russell Morocho MD Work Phone: [facility] 05-17-2023 14:38-0400 Systolic blood pressure 153 mm[Hg] Russell Morocho MD Work Phone: [facility] 05-17-2023 14:32-0400 Body height 154.9 cm Russell Morocho MD Work Phone: [facility] 05-17-2023 14:32-0400 Body mass index (BMI) [Ratio] 26.26 kg/m2 Russell Morocho MD Work Phone: [facility] 05-17-2023 14:32-0400 Body temperature 99.9 [degF] Russell Morocho MD Work Phone: [facility] 05-17-2023 14:32-0400 Body weight 63.05 kg Russell Morocho MD Work Phone: [facility] 05-17-2023 14:32-0400 Respiratory rate 16 /min Russell Morocho MD Work Phone: [facility] 05-17-2023 14:32-0400 SaO2% (BldA) [Mass fraction] 94 % Russell Morocho MD Work Phone: [facility] 04-19-2023 13:56-0400 Body height 154.9 cm Russell Morocho MD Work Phone: [facility] 04-19-2023 13:56-0400 Body mass index (BMI) [Ratio] 26.26 kg/m2 Russell Morocho MD Work Phone: [facility] 04-19-2023 13:56-0400 Body temperature 98.29 [degF] Russell Morocho MD Work Phone: [facility] 04-19-2023 13:56-0400 Body weight 63.05 kg Russell Morocho MD Work Phone: [facility] 04-19-2023 13:56-0400 Diastolic blood pressure 79 mm[Hg] Russell Morocho MD Work Phone: [facility] 04-19-2023 13:56-0400 Heart rate 86 /min Russell Morocho MD Work Phone: [facility] 04-19-2023 13:56-0400 Respiratory rate 18 /min Russell Morocho MD Work Phone: [facility] 04-19-2023 13:56-0400 SaO2% (BldA) [Mass fraction] 93 % Russell Morocho MD Work Phone: [facility] 04-19-2023 13:56-0400 Systolic blood pressure 144 mm[Hg] Russell Morocho MD Work Phone: [facility] 11-22-2022 15:52-0500 Body height 157.[address] Bella Franco Work Phone: [facility] 11-22-2022 15:52-0500 Body mass index (BMI) [Ratio] 25.2 kg/m2 Dr. Bella Franco Work Phone: [facility] 11-22-2022 15:52-0500 Body temperature 97.3 [degF] Dr. Bella Franco Work Phone: [facility] 11-22-2022 15:52-0500 Body weight 62.[address] Bella Franco Work Phone: [facility] 11-22-2022 15:52-0500 Diastolic blood pressure 84 mm[Hg] Dr. Bella Franco Work Phone: [facility] 11-22-2022 15:52-0500 Heart rate 87 /min Dr. Bella Franco Work Phone: [facility] 11-22-2022 15:52-0500 Respiratory rate 14 /min Dr. Bella Franco Work Phone: [facility] 11-22-2022 15:52-0500 SaO2% (BldA) [Mass fraction] 98 % Dr. Bella Franco Work Phone: [facility] 11-22-2022 15:52-0500 Systolic blood pressure 142 mm[Hg] Dr. Bella Franco Work Phone: [facility] 08-23-2022 09:25-0400 Diastolic blood pressure 76 mm[Hg] Dr. Bella Franco Work Phone: [facility] 08-23-2022 09:25-0400 Systolic blood pressure 128 mm[Hg] Dr. Bella Franco Work Phone: [facility] 08-23-2022 08:56-0400 Body height 157.[address] Bella Franco Work Phone: [facility] Work Phone: 08-23-2022 08:56-0400 Body mass index (BMI) [Ratio] 25 kg/m2 Dr. Bella Franco Work Phone: [facility] 08-23-2022 08:56-0400 Body temperature 96.5 [degF] Dr. Bella Franco Work Phone: [facility] 08-23-2022 08:56-0400 Body weight 62.[address] Bella Franco Work Phone: [facility] 08-23-2022 08:56-0400 Heart rate 70 /min Dr. Bella Franco Work Phone: [facility] 08-23-2022 08:56-0400 Respiratory rate 16 /min Dr. Bella Franco Work Phone: [facility] 08-23-2022 08:56-0400 SaO2% (BldA) [Mass fraction] 97 % Dr. Bella Franco Work Phone: [facility] 07-19-2022 16:03-0400 Body height 157.[address] Bella Franco Work Phone: [facility] Work Phone: 07-19-2022 16:03-0400 Body mass index (BMI) [Ratio] 24.9 kg/m2 Dr. Bella Franco Work Phone: [facility] Work Phone: 07-19-2022 16:03-0400 Body temperature 97.3 [degF] Dr. Bella Franco Work Phone: [facility] Work Phone: 07-19-2022 16:03-0400 Body weight 61.[address] Bella Franco Work Phone: [facility] Work Phone: 07-19-2022 16:03-0400 Diastolic blood pressure 70 mm[Hg] Dr. Bella Franco Work Phone: [facility] Work Phone: 07-19-2022 16:03-0400 Heart rate 85 /min Dr. Bella Franco Work Phone: [facility] Work Phone: 07-19-2022 16:03-0400 Respiratory rate 18 /min Dr. Bella Franco Work Phone: [facility] Work Phone: 07-19-2022 16:03-0400 SaO2% (BldA) [Mass fraction] 96 % Dr. Bella Franco Work Phone: [facility] Work Phone: 07-19-2022 16:03-0400 Systolic blood pressure 136 mm[Hg] Dr. Bella Franco Work Phone: [facility] Work Phone: 05-15-2022 13:29-0400 Body height 157.[address] Bella Franco Work Phone: [facility] Work Phone: 05-15-2022 13:29-0400 Body mass index (BMI) [Ratio] 24.7 kg/m2 Dr. Bella Franco Work Phone: [facility] Work Phone: 05-15-2022 13:29-0400 Body temperature 97.5 [degF] Dr. Bella Franco Work Phone: [facility] Work Phone: 05-15-2022 13:29-0400 Body weight 61.[address] Bella Franco Work Phone: [facility] Work Phone: 05-15-2022 13:29-0400 Diastolic blood pressure 90 mm[Hg] Dr. Bella Franco Work Phone: [facility] Work Phone: 05-15-2022 13:29-0400 Heart rate 68 /min Dr. Bella Franco Work Phone: [facility] Work Phone: 05-15-2022 13:29-0400 Respiratory rate 16 /min Dr. Bella Franco Work Phone: [facility] Work Phone: 05-15-2022 13:29-0400 SaO2% (BldA) [Mass fraction] 98 % Dr. Bella Franco Work Phone: [facility] Work Phone: 05-15-2022 13:29-0400 Systolic blood pressure 154 mm[Hg] Dr. Bella Franco Work Phone: [facility] Work Phone: 05-10-2022 15:58-0400 Body mass index (BMI) [Ratio] 24.7 kg/m2 Dr. Bella Franco Work Phone: [facility] Work Phone: 05-10-2022 15:58-0400 Body temperature 97.6 [degF] Dr. Bella Franco Work Phone: [facility] Work Phone: 05-10-2022 15:58-0400 Body weight 61.[address] Bella Fracno Work Phone: [facility] Work Phone: 05-10-2022 15:58-0400 Diastolic blood pressure 84 mm[Hg] Dr. Bella Franco Work Phone: [facility] Work Phone: 05-10-2022 15:58-0400 Heart rate 80 /min Dr. Bella Franco Work Phone: [facility] Work Phone: 05-10-2022 15:58-0400 Respiratory rate 18 /min Dr. Bella Franco Work Phone: [facility] Work Phone: 05-10-2022 15:58-0400 SaO2% (BldA) [Mass fraction] 97 % Dr. Bella Franco Work Phone: [facility] Work Phone: 05-10-2022 15:58-0400 Systolic blood pressure 140 mm[Hg] Dr. Bella Franco Work Phone: [facility] Work Phone: 04-04-2022 11:01-0400 Diastolic blood pressure 92 mm[Hg] No Pcp Required [facility] 04-04-2022 11:01-0400 Heart rate 79 /min No Pcp Required [facility] 04-04-2022 11:01-0400 Respiratory rate 18 /min No Pcp Required [facility] 04-04-2022 11:01-0400 SaO2% (BldA) [Mass fraction] 97 % No Pcp Required [facility] 04-04-2022 11:01-0400 Systolic blood pressure 166 mm[Hg] No Pcp Required [facility] 04-04-2022 09:00-0400 Body height 157.4 cm No Pcp Required [facility] 04-04-2022 09:00-0400 Body temperature 97.7 [degF] No Pcp Required [facility] 04-04-2022 09:00-0400 Body weight 63 kg No Pcp Required [facility] 01-03-2022 15:40-0500 Body mass index (BMI) [Ratio] 25.4 kg/m2 Dr. Bella Franco Work Phone: [facility] Work Phone: 01-03-2022 15:40-0500 Body temperature 97.1 [degF] Dr. Bella Franco Work Phone: [facility] Work Phone: 01-03-2022 15:40-0500 Body weight 63.[address] Bella Franco Work Phone: [facility] Work Phone: 01-03-2022 15:40-0500 Diastolic blood pressure 82 mm[Hg] Dr. Bella Franco Work Phone: [facility] Work Phone: 01-03-2022 15:40-0500 Heart rate 77 /min Dr. Bella Franco Work Phone: [facility] Work Phone: 01-03-2022 15:40-0500 Respiratory rate 14 /min Dr. Bella Franco Work Phone: [facility] Work Phone: 01-03-2022 15:40-0500 SaO2% (BldA) [Mass fraction] 99 % Dr. Bella Franco Work Phone: [facility] Work Phone: 01-03-2022 15:40-0500 Systolic blood pressure 140 mm[Hg] Dr. Bella Franco Work Phone: [facility] Work Phone: 12-18-2021 19:30-0500 Diastolic blood pressure 90 mm[Hg] No Pcp Required [facility] 12-18-2021 19:30-0500 Heart rate 89 /min No Pcp Required [facility] 12-18-2021 19:30-0500 Respiratory rate 16 /min No Pcp Required [facility] 12-18-2021 19:30-0500 SaO2% (BldA) [Mass fraction] 100 % No Pcp Required [facility] 12-18-2021 19:30-0500 Systolic blood pressure 157 mm[Hg] No Pcp Required [facility] 12-18-2021 17:33-0500 Body height 157.4 cm No Pcp Required [facility] 12-18-2021 17:33-0500 Body temperature 98.96 [degF] No Pcp Required [facility] 12-18-2021 17:33-0500 Body weight 61 kg No Pcp Required [facility] Encounters Encounter Date Encounter Type Care Provider Facility Start: 06-24-2025 End: 06-24-[address] Bella Franco MD Work Phone: [facility] Start: 06-24-2025 End: 06-24-2025 Patient encounter procedure Fidencio Wise [place] -[facility] Work Phone: Start: 04-15-2025 End: 04-15-[address] Bella Franco MD Work Phone: [facility] Work Phone: Start: 04-15-2025 End: 04-15-[address] Bella Franco MD -Outpatient Breast Imaging Work Phone: Start: 04-15-2025 End: 04-15-2025 ambulatory Anayelimohegan laketravis Franco Facility:[facility] Start: 03-24-2025 End: 03-24-[address] Bella Franco MD -[facility] Work Phone: Start: 03-24-2025 End: 03-24-[address] Bella Franco MD [facility] Start: 03-24-2025 End: 03-24-2025 ambulatory Bella Franco Facility:[facility] Start: 09-24-2024 End: 09-24-2024 ambulatory Bella Franco Facility:[facility] Start: 06-13-2024 End: 06-13-2024 [facility] Start: 06-13-2024 End: 06-13-2024 ambulatory [facility] Facility:[facility] Start: 03-10-2024 End: 03-10-2024 ambulatory [facility] Work Phone: Start: 03-10-2024 End: 03-10-2024 Patient encounter procedure [facility]-Outpatient Bone Densitometry Work Phone: Start: 09-19-[address] Bella Franco Work Phone: [facility] Start: 09-19-2023 End: 09-19-[address] Bella Franco Work Phone: [facility] Work Phone: Start: 09-19-2023 End: 09-19-2023 Encounter for general adult medical examination without abnormal findings Dr. Bella Franco Work Phone: [facility] Start: 09-19-2023 End: 09-19-[address] Bella Franco Work Phone: [facility] Work Phone: Start: 08-21-2023 End: 08-21-[address] Bella Franco Work Phone: [facility] Work Phone: Start: 06-18-2023 ambulatory [facility] Ambulatory Start: 05-17-2023 End: 05-17-2023 ambulatory [facility] Ambulatory Start: 05-17-2023 End: 05-17-2023 Office outpatient visit 15 minutes Russell Morocho MD Work Phone: [facility] Comment on above: Chest wall pain (Adri lizzette Dx); Benign hypertension Start: 04-21-2023 ambulatory [facility] Ambulatory Start: 04-19-2023 End: 04-23-2023 ambulatory [facility] Start: 04-19-2023 End: 04-19-2023 Office outpatient new 30 minutes Russell Morocho MD Work Phone: [facility] Comment on above: Benign hypertension (Primary Dx); Pure hypercholesterolemia; Sciatica, right side Start: 04-17-2023 ambulatory Ms. Timmy Barnes acility:[id number] Start: 11-22-2022 End: 11-22-[address] Bella Franco Work Phone: [facility] Work Phone: Start: 11-22-2022 End: 11-22-[address] Bella Franco Work Phone: [facility] Start: 09-03-2022 ambulatory Ms. Ellen Rosado Facility:[id number] Start: 09-03-2022 Encounter for other general examination Ms. Timmy [facility] Start: 08-23-2022 End: 08-23-[address] Bella Franco Work Phone: [facility] Work Phone: Start: 08-23-2022 End: 08-23-[address] Bella Franco Work Phone: [facility] Start: 07-30-2022 ambulatory Ms. Ellen Rosado Facility:[id number] Start: 07-27-2022 End: 07-27-[address] Bella Franco Work Phone: [facility] Work Phone: Start: 07-27-2022 End: 07-27-[address] Bella Franco Work Phone: [facility]-Laboratory Start: 07-19-2022 End: 07-19-[address] Bella Franco Work Phone: [facility] Start: 06-26-2022 End: 06-26-[address] Bella Franco Work Phone: [facility]-Outpatient Breast Imaging Start: 05-15-2022 End: 05-15-[address] Bella Franco Work Phone: [facility] Start: 05-10-2022 End: 05-10-[address] Bella Franco Work Phone: [facility] Start: 04-04-2022 End: 04-04-2022 Emergency department patient visit Kris Fermin [facility] Emergency 09 Start: 02-06-2022 End: 02-06-[address] Bella Franco Work Phone: [facility] Start: 12-18-2021 End: 12-18-2021 Emergency department patient visit Linn Majano [facility] Emergency 04 Start: 04-04-2018 End: 04-04-2018 Emergency department patient visit [facility] Facility:[facility] Start: 08-14-2017 End: 08-15-2017 Ambulatory [facility] Facility:[facility] Procedures Date Procedure Procedure Detail Performing Clinician Start: 06-24-2025 Plain X-ray of shoulder Dr. Bella Franco MD Work Phone: Start: 04-15-2025 Screening mammography Wendy Franco MD Work Phone: Start: 03-10-2024 Dual energy X-ray absorptiometry Start: 03-10-2024 Screening mammography Start: 08-21-2023 Plain x-ray of pelvi s and lower extremity Dr. Bella Franco Work Phone: Start: 08-21-2023 X-ray of lumbar spin e, two or three views Dr. Bella Franco Work Phone: Start: 04-19-2023 Adult depression scr eening assessment Russell Morocho MD Work Phone: Start: 08-23-[address] Ofelia Franco Work Phone: Start: 06-26-2022 Screening mammography Wendy Franco Work Phone: Start: 05-15-[address] Kelly Franco Work Phone: Start: 01-30-2021 Follow-up visit Start: 12-12-2020 Follow-up visit Plan of Treatment Date Care Activity Detail Author Start: 04-04-2032 Tetanus vaccination Tetanus: Every 10yrs [facility] Start: 04-19-2024 Depression screening using PHQ-9 (Patient Health Questionnaire 9) score Depression Screening (PHQ-2/9) [facility] Start: 10-18-2023 End: 10-18-2023 Patient encounter procedure 10/18/2023 2:00 PM EST Office Visit [facility] [address] [place] [address] Russell Morocho MD [address] [address] [facility] Start: 07-19-2023 Influenza vaccination Sequential Influenza Vaccine (Season Ended) [facility] Start: 05-15-2023 Screening for malignant neoplasm of lung Low-dose CT Lung Cancer Screen [facility] Start: 10-21-2021 COVID-19 Vaccine (4 - Pfizer series) COVID-19 Vaccine (4 - Pfizer series) [facility] Start: 10-21-2021 COVID-19 Vaccine (5 - Booster for Pfizer series) COVID-19 Vaccine (5 - Booster for Pfizer series) [facility] Start: 2011 Administration of herpes zoster vaccine Zoster Vaccines (1 of 2) [facility] Start: 2011 Screening for malignant neoplasm of colon Flexible sigmoidoscopy [facility] Start: 2001 Screening for malignant neoplasm of breast Mammogram [facility] Start: 1979 Hepatitis C screening Hepatitis C Screening [facility] Start: 1976 HIV screening HIV Screening [facility] Start: 1967 Pneumococcal Vaccine: Ped or At-Risk (1 - PCV) Pneumococcal Vaccine: Ped or At-Risk (1 - PCV) [facility] Start: 1964 History and physical examination, annual for health maintenance Wellness Visit [facility] Start: 1961 Screening for malignant neoplasm of colon [facility] CBC W Auto Different ial panel - Blood [facility] Comprehensive metabo lic 1999 panel - Serum or Plasma [facility] DXA Bone [Mass/Area] Bone density [facility] Lipid 1996 panel - S helen or Plasma [facility] MG Breast - bilatera l Screening [facility] Work Phone: MG Breast - bilatera l Screening [facility] MR Lumbar spine [facility] Immunizations Immunization Date Immunization Notes Care Provider Fa cility 04-04-2022 tetanus toxoid, reduced diphtheria toxoid, and acellular pertussis vaccine, adsorbed No Pcp Required [facility] 08-26-2021 Pfizer SARS-CoV-2 Vaccination Russell Morocho MD Work Phone: [facility] 01-02-2021 Pfizer SARS-CoV-2 Vaccination Russell Morocho MD Work Phone: [facility] 12-12-2020 Pfizer SARS-CoV-2 Vaccination Russell Morocho MD Work Phone: [facility] Payers Date Payer Category Payer Self-pay [id number] 2022 Unknown [id number] 2017 Unknown 1961 Unknown [id number] 2.16.8 [id number] 1961 Unknown [id number] 2.16.8 [id number] 1961 Unknown [id number] .16.8 [id number] 1961 Unknown [id number] 2.16. [id number] 1961 Unknown [id number] 2.16. [id number] 1961 Unknown [id number] 2.16. [id number] 1961 Unknown [id number] 2.16. [id number] 1961 Unknown [id number] 2.16. [id number] Unknown [id number] Unknown [id number] Unknown [id number] Unknown [id number] 2.16.8 [id number] Unknown [id number] 2.16.8 [id number] Unknown [id number] 2.16.8 [id number] Unknown [id number] 2.16.8 [id number] Unknown [id number] 2.16.8 [id number] Social History Date Type Detail Facility [facility] Start: 05-15-2022 End: 09-19-2023 Tobacco smoking consumption unknown [facility] Start: 1960 Sex Assigned At Female [facility] Start: 05-30-2021 End: 09-19-2023 Tobacco smoking status NHIS Smokes tobacco daily [facility] History of tobacco use [facility] Start: 05-30-2021 End: 04-19-2023 Cigarettes smoked current (pack per day) - Reported 0.5 [facility] Start: 05-30-2021 Tobacco use and exposure Smokeless tobacco non-user [facility] Start: 04-20-2023 End: 05-17-2023 Alcohol intake Not Asked [facility] Start: 04-19-2023 End: 05-17-2023 Tobacco use panel [facility] Adult Depression Screening Assessment 0 [facility] Start: 05-30-2021 Alcohol Comment weekends mainly [facility] Start: 1960 Sex Assigned At Not on file [facility] Start: 05-30-2021 Gender identity Identifies as female gender (finding) [facility] Start: 05-30-2021 Sexual orientation Heterosexual (finding) [facility] Clinical Notes 04-19-2023 to 03-24-2025 Note Date & Type Note Facility 03-24-2025 Evaluation note Diagnosis Onset Date Resolution Cough acute March 24, 2025 3:51pm Health care maintenance acute M ay 2024 3:51pm Pharyngitis acute March 24, 2025 3:51pm Hypertension chronic March 24 3:51pm Lumbar radiculopathy chronic March 24, 2025 3:51pm Tobacco abuse chronic March 24 3:51pm [facility] Work Phone: [phone] 851-991406-30-2023 History of Present illness Narrative* Russell Morocho MD - 05/17/2023 3:01 PM EDT Images from the original note were not included. Subjective Patient ID: Adali Alvarez is a 63 y.o. female. Patient here with some discomfort along the left anterior axillary region she does not feel a specific nodule per se but area of discomfort she states it does hurt when she moves and has been quite active recently at work Her blood pressure seems to be continued elevated she is not getting any numbers less than 140 at home The following portions of the patient's history were reviewed and updated as appropriate: allergies, current medications, past family history, past medical history, past social history, past surgicalhistory, and problem list. Review of Systems Constitutional: Negative for chills, diaphoresis and fever. HENT: Negative for congestion and sinus pain. Eyes: Negative for redness. Respiratory: Negative for cough, shortness of breath and wheezing. Cardiovascular: Positive for chest pain. Gastrointestinal: Negative for diarrhea, nausea and vomiting. Endocrine: Negative for polydipsia. Genitourinary: Negative for frequency and hematuria. Musculoskeletal: Negative for back pain. Neurological: Negative for weakness and headaches. Psychiatric/Behavioral: Negative for confusion. Objective Physical Exam Constitutional: General: She is not in acute distress. Appearance: She is normal weight. Cardiovascular: Rate and Rhythm: Normal rate and regular rhythm. Heart sounds: No murmur heard. No friction rub. No gallop. Pulmonary: Effort: Pulmonary effort is normal. Breath sounds: No wheezing, rhonchi or rales. 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 Assessment/Plan: Diagnoses and all orders for this visit: Chest wall pain - predniSONE (DELTASONE) 10 MG tablet; Take 1 (one) tablet (10 mg total) by mouth 3 (three) times aday for 7 days . Rest stretches if not improving with medications call Benign hypertension - hydroCHLOROthiazide (HYDRODIURIL) 12.5 MG tablet; Take 1 (one) tablet (12.5 mg total) by mouth daily . We will add hydrochlorothiazide she will let us know how her blood pressure is doing in the next 3 to 4 weeks Russell Morocho M.D. For any new medications prescribed today, patient was educated about indications for the medication, how to take the medication and potential side effects of the medications. documented in this [id number] History of Present illness Narrative* Russell Morocho MD - 04/19/2023 2:20 PM EDT Images from the original note were not included. Subjective Patient ID: Adali Alvarez is a 63 y.o. female. New patient - previous doc in [place] had cologuard last year with doc in [place] Is on antihypertensives doing fine blood pressure mildly elevated today Has history of chronic right-sided sciatica takes gabapentin seems to do well not really interestedin surgeries or further injections The following portions of the patient's history were reviewed and updated as appropriate: allergies, current medications, past family history, past medical history, past social history, past surgicalhistory, and problem list. Review of Systems Constitutional: Negative for chills, diaphoresis and fever. HENT: Negative for congestion and sinus pain. Eyes: Negative for redness. Respiratory: Negative for cough, shortness of breath and wheezing. Cardiovascular: Negative for chest pain. Gastrointestinal: Negative for diarrhea, nausea and vomiting. Endocrine: Negative for polydipsia. Genitourinary: Negative for frequency and hematuria. Musculoskeletal: Positive for back pain. Neurological: Negative for weakness and headaches. Psychiatric/Behavioral: Negative for confusion. Objective Physical Exam Vitals reviewed. Constitutional: General: She is awake. Appearance: Normal appearance. She is well-developed. HENT: Head: Normocephalic and atraumatic. Right Ear: Tympanic membrane and ear canal normal. Left Ear: Tympanic membrane and ear canal normal. Nose: Nose normal. Eyes: General: Lids are normal. Extraocular Movements: Extraocular movements intact. Pupils: Pupils are equal, round, and reactive to light. Cardiovascular: Rate and Rhythm: Normal rate and regular rhythm. Heart sounds: S1 normal and S2 normal. No murmur heard. No friction rub. No gallop. Pulmonary: Effort: Pulmonary effort is normal. No tachypnea. Breath sounds: Normal breath sounds. No stridor or decreased air movement. No wheezing, rhonchi or rales. Neurological: Mental Status: She is alert. Gait: Gait is intact. Psychiatric: Behavior: Behavior is cooperative. Assessment/Plan: Diagnoses and all orders for this visit: Benign hypertension - Basic Metabolic Panel; Future Notify us when needs refill on medications Pure hypercholesterolemia - Hepatic Function Panel; Future - Lipid Panel; Future Sciatica, right side We will continue with current medicines Russell Morocho M.D. For any new medications prescribed today, patient was educated about indications for the medication, how to take the medication and potential side effects of the medications. [facility]* Diagnosis Onset Date Resolution Status Tobacco abuse acute Hypertension chronic Tobacco abuse acute Hypertension chronic Anxiety and depression nonea ctive [id number] acute Tobacco abuse acute [facility] Work Phone: Evaluation note* Diagnosis Onset Date Resolution Status Tobacco abuse acute Hypertension chronic Anxiety and depression nonea ctive [id number] acute Tobacco abuse acute [facility] Work Phone: Evaluation note* Diagnosis Onset Date Resolution Status Tobacco abuse acute Hypertension chronic Anxiety and depression nonea ctive [id number] acute Tobacco abuse acute Tobacco abuse acute Hypertension chronic [facility] Work Phone: Evaluation note* Diagnosis Onset Date Resolution Status Tobacco abuse acute Hypertension chronic Anxiety and depression nonea ctive [id number] acute Tobacco abuse acute Tobacco abuse acute Hypertension chronic Hypertension chronic Ankle swelling noneactive Ankle pain, right noneactive [facility] Work Phone: Evaluation note* Diagnosis Onset Date Resolution Status Hypertension chronic Ankle swelling noneactive Ankle pain, right noneactive Hypertension chronic Tobacco abuse chronic Ankle pain, right noneactive Sore throat noneactive [facility] Work Phone: Evaluation note* Diagnosis Benign hypertension- Primary Essential hypertension, benign Pure hypercholesterolemia Sciatica, right side [facility] Diagnosis Chest wall pain- Primary Painful respiration Benign hypertension Essential hypertension, benign [facility] Diagnosis Onset Date Resolution Status Left hip pain acute Scoliosis of lumbosacral reg ion due to degenerative disease of spine in adult acute Health care maintenance acut e DDD (degenerative disc disease), lumbar chronic Hypertension chronic Tobacco abuse chronic [facility] Work Phone: Evaluation noteNo assessment information available [facility] Work Phone: Reason for referral (narrative)No reason for [facility] information [facility] Work [facility]: Summary Purpose Family History Relationship Condition Age at Onset Recorded Date/T emi grandmother Malignant neoplasm of breast Unknown Malignant neoplasm Unknown brother Malignant neoplasm Unknown mother Diabetes mellitus Unknown Kidney disorder Unknown Advance Directives No Advanced Directives Records FoundNo Advanced Directives Records FoundNo Advanced Directives Records FoundNo Advanced Directives Records FoundNo Advanced Directives Records FoundNo Advanced Directives Records FoundNo Advanced Directives Records Found Chief Complaint and Reason for Visit Chief Complaint 3 M FU R/S 3 M FU LUNG CANCER SCREENING Nicotine dependence Reason for Visit Tobacco abuse Hypertension Tobacco abuse Hypertension Anxiety and depression [id number] Tobacco abuse Chief Complaint 3 M FU LUNG CANCER SCREENING Nicotine dependence SCREENING Reason for Visit Tobacco abuse Hypertension Anxiety and depression [id number] Tobacco abuse Chief Complaint 3 M FU LUNG CANCER SCREENING Nicotine dependence SCREENING 2 m fu INT LABS Reason for Visit Tobacco abuse Hypertension Anxiety and depression [id number] Tobacco abuse Tobacco abuse Hypertension Chief Complaint 3 M FU LUNG CANCER SCREENING Nicotine dependence SCREENING 2 m fu INT LABS SWOLLEN ANKLE EORDER Reason for Visit Tobacco abuse Hypertension Anxiety and depression [id number] Tobacco abuse Tobacco abuse Hypertension Hypertension Ankle swelling Ankle pain, right Chief Complaint SWOLLEN ANKLE EORDER FU Reason for Visit Hypertension Ankle swelling Ankle pain, right Hypertension Tobacco abuse Ankle pain, right Sore throat Chief Complaint LUMBAR SPINE Xray room 3 Room 3 FOLLOW UP FROM NOVEMBER Reason for Visit Left hip pain Scoliosis of lumbosacral region due to degenerative disease of spine in adult Health care maintenance DDD (degenerative disc disease), lumbar Hypertension Tobacco abuse Chief Complaint SCREENING/POST WONG Chief Complaint Admit Date 6 M FU March 24, 2025 3:51pm Breast cancer screening April 15, 2025 9 :34am Reason for Visit Admit Date Cough March 24, 2025 3:51pm Health care maintenance March 24, 2025 3: 51pm Pharyngitis March 24, 2025 3:51pm Hypertension March 24, 2025 3:51pm Lumbar radiculopathy March 24, 2025 3:51p m Tobacco abuse March 24, 2025 3:51pm Chief Complaint Admit Date 6 M FU March 24, 2025 3:51pm Breast cancer screening April 15, 2025 9 :34am R SHOULDER PAIN June 24, 2025 9:5 5am SHOULDER PAIN June 24, 2025 10: 02am Additional Source Comments INFORMATION SOURCE (unrecogn ized section and content) DATE CREATED AUTHOR 05/07/2018 [facility] DATE CREATED AUTHOR AUTHOR'S ORGANIZ ATION 02/01/2021 [employer] DATE CREATED AUTHOR AUTHOR'S ORGANIZ ATION 04/28/2023 [facility] DATE CREATED AUTHOR AUTHOR'S ORGANIZ ATION 04/28/2023 [facility] DATE CREATED AUTHOR AUTHOR'S ORGANIZ ATION 04/28/2023 [facility] DATE CREATED AUTHOR AUTHOR'S ORGANIZ ATION 01/19/2024 [facility] DATE CREATED AUTHOR AUTHOR'S ORGANIZ ATION 04/21/2025 [facility] <item><item> Privacy Markings (unrecogniz ed section and content) Section Author: Lyndsey Maldonado PROHIBITION ON REDISCLOSURE OF CONFIDENTIAL INFORMATION This notice accompanies a disclosure of information concerning a client made to you with the consent of such client. Section Author: Lyndsey Maldonado PROHIBITION ON REDISCLOSURE OF CONFIDENTIAL INFORMATION This notice accompanies a disclosure of information concerning a client made to you with the consent of such client. Goals (unrecognized section and content) Goals may be documented in a n alternate sectionGoals may be documented in an alternate sectionGoals may be documented in an alternate sectionGoals may be documented in an alternate sectionGoals may be documented in an alternate sectionGoals may be documented in an alternate sectionGoals may be documented in an alternate sectionGoals may be documented in an alternate sectionGoals may be documented in an alternate section Care Teams (unrecognized sec tion and content) Team Status: Active Member Role Status Dates Dr. Bella Franco MD Primary Care Provider Active Team Status: Inactive Member Role Status Dates Dr. Bella Franco MD Primary Care Provider, Refer ring Provider Active SONAM Wharton Attending Provider Active Team Status: Inactive Member Role Status Dates Dr. Bella Franco MD Primary Care Provider Active SONAM Wharton Attending Provider, Referring Pro vider Active Sample Maker Relationship Specialty Start Date End Date Russell Morocho MD [address] [id number] PCP - General Family Medicine 04/19/23 Sample Maker Relationship Specialty Start Date End Date Russell Morocho MD [address] [address] PCP - General Family Medicine 04/19/23 Team Status: Inactive Member Role Status Dates Dr. Bella Franco MD Primary Care P latha, Attending Provider, Referring Provider Active Team Status: Inactive Member Role Status Dates Dr. Bella Franco MD Primary Care Provider, Refer ring Provider Active Dr. Unruly Sandoval DO Attending Provider Active Team Status: Inactive Member Role Status Dates Dr. Bella Franco MD Primary Care Provider Active Dr. Red Rubio MD Attending Provider Active Team Status: Inactive Member Role Status Dates Dr. Bella Franco MD Primary Care Provider, Atten ding Provider Active Team Status: Inactive Member Role Status Dates Dr. Bella Franco MD Primary Care Provider Active Start: March 24, 2025 End: March 24, 2025 Dr. Bella Franco MD Attending Provider Active Start: March 24, 2025 End: March 24, 2025 Dr. Bella Franco MD Referring Provider Active Start: March 24, 2025 End: March 24, 2025 Team Status: Inactive Member Role Status Dates Dr. Bella Franco MD Primary Care Provider Active Start: April 15, 2025 End: April 15, 2025 Dr. Bella Franco MD Attending Provider Active Start: April 15, 2025 End: April 15, 2025 Dr. Bella Franco MD Referring Provider Active Start: April 15, 2025 End: April 15, 2025 Team Status: Active Member Role/Relationship Status Dates Dr. Bella Franco MD Primary Care Provider Active Team Status: Inactive Member Role/Relationship Status Dates Dr. Bella Franco MD Primary Care Provider Active Start: March 24, 2025 End: March 24, 2025 Dr. Bella Franco MD Attending Provider Active Start: March 24, 2025 End: March 24, 2025 Dr. Bella Franco MD Referring Provider Active Start: March 24, 2025 End: March 24, 2025 Team Status: Inactive Member Role/Relationship Status Dates Dr. Bella Franco MD Primary Care Provider Active Start: April 15, 2025 End: April 15, 2025 Dr. Bella Franco MD Attending Provider Active Start: April 15, 2025 End: April 15, 2025 Dr. Bella Franco MD Referring Provider Active Start: April 15, 2025 End: April 15, 2025 Team Status: Inactive Member Role/Relationship Status Dates Dr. Bella Franco MD Primary Care Provider Active Start: June 24, 2025 End: June 24, 2025 Dr. Bella Franco MD Referring Provider Active Start: June 24, 2025 End: June 24, 2025 SONAM Monsalve Attending Provider Active Sta rt: June 24, 2025 End: June 24, 2025 Team Status: Active Member Role/Relationship Status Dates Dr. Bella Franco MD Primary Care Provider Active Start: June 24, 2025 SONAM Monsalve Attending Provider Active Sta rt: June 24, 2025 SONAM Monsalve Referring Provider Active Sta rt: June 24, 2025 Reason for Visit (unrecogniz ed section and content) Reason Comments Establish Care Reason Comments Other Lump under arm pit FOR RECORDS PERTAINING TO PATIENTS WHO ARE OR HAVE BEEN ENROLLED IN A CHEMICAL DEPENDENCY/SUBSTANCEABUSE PROGRAM, SOME INFORMATION MAY BE OMITTED. This clinical summary was aggregated from multiple sources. Caution should be exercised in using it in the provision of clinical care. This summary normalizes information from multiple sources, and as a consequence, information in this document may materially change the coding, format and clinical context of patient data. In addition, data may be omitted in some cases. CLINICAL DECISIONS SHOULD BE BASED ON THE PRIMARY CLINICAL RECORDS. [facility] [employer] [facility]. provides no warranty or guarantee of the accuracy or completeness of information in this document.
== END | disposition home or self-care (01) ==
PROVIDERS: PCP Internal Medicine; Referring Provider Physician Assistant Surgical; Visit Provider Physician Assistant Surgical
DX: S46.911A Strain of unspecified muscle, fascia and tendon at shoulder and upper arm level, right arm, initial encounter (principal)
CPT/HCPCS: 73030

== ENCOUNTER → 2025-10-01 | Outpatient (CLI) | payer OTHER, SELFPAY ==
[2025-10-01 17:07] LABS: Anion Gap 12 (5-15); BUN 25 mg/dL (4-19); BUN/Creat Ratio 22.8 RATIO (10-20); Calcium,Total 9.8 mg/dL (7.6-11.0); Carbon Dioxide 24.1 mmol/L (21.0-32.0); Chloride 103 mmol/L (98-108); Glucose 110 mg/dL (70-99); Potassium 3.8 mmol/L (3.3-5.1)
== END | disposition home or self-care (01) ==
LOC: LAB 15:01
PROVIDERS: PCP Internal Medicine; Referring Provider Internal Medicine; Visit Provider Internal Medicine
DX: I10 Essential (primary) hypertension (principal)
CPT/HCPCS: 36415; 80048